=== PATIENT | male | born 1965 | race Caucasian/White ===

== ENCOUNTER 2020-06-04 14:06 | Inpatient (IN) | payer MEDICARE, MEDICAID, SELFPAY ==
--- NOTE | 2020-06-04 | ECG_ITS ---
Test Reason : R/O QTC PROLONG Blood Pressure : / mmHG Vent. Rate : 094 BPM Atrial Rate : 094 BPM P-R Int : 144 ms QRS Dur : 090 ms QT Int : 360 ms P-R-T Axes : 037 059 054 degrees QTc Int : 450 ms Normal sinus rhythm Normal ECG No previous ECGs available Referred By: Debbie Villalpando Electronically Signed By:ASHLEY WALLACE MD
[2020-06-04 16:26] LABS: Lithium 0.53 mmol/L (0.60-1.20)
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
[2020-06-04] MEDS: LORazepam 1 MG TABLET PO (17:45)
[2020-06-04 21:16] VITALS: BP 146/86; PULSE 100; TEMP 37.2; O2SAT 98
[2020-06-04] MEDS: QUEtiapine Fumarate 100 MG TABLET PO (21:18)
[2020-06-04] MEDS: Lithium Carbonate 300 MG CAPSULE PO (21:18)
[2020-06-05] MEDS: hydrOXYzine HCL 25 MG TABLET PO (00:36)
[2020-06-05] MEDS: OLANZapine 5 MG TABLET PO ×3 (00:36→15:06)
[2020-06-05] MEDS: LORazepam 1 MG TABLET PO ×3 (00:36→15:06)
--- NOTE | 2020-06-05 05:15 | PC.NURSE ---
0030: PT CAME RUNNING OUT OF HIS ROOM, CONFUSED, ACCUSING FEMALE SITTER OF SPEAKING INAPPROPRIATELY TO HIM, CARRYING A PIECE OF PAPER YELLING THAT HE WROTE WHAT SHE SAID. THE PIECE OF PAPER ONLY HAD HIS LAST NAME WRITTEN TWICE. PT THEN DEMANDED TO BE ALLOWED TO LEAVE UNIT OR HE WOULD BURN THE PLACE DOWN . SECURITY CALLED TO ASSIST WITH REDIRECTING PT. PT ACCEPTED PRN MEDICATION AT 0035 WITH GOOD EFFECT. PT IN BED BY 0050 AND APPEARS TO HAVE SLEPT.
[2020-06-05 06:00] VITALS: BP 132/83; PULSE 98; RESP 16; TEMP 36.4; O2SAT 97
[2020-06-05 07:56] LABS: MANUAL DIFF FLAG NO
[2020-06-05 08:02] LABS: Basophils Absolute Auto 0.1 X10*3/uL (0.0-0.2); Basophils Percent Auto 1.2 % (0-2); Eosinophils Absolute Auto 0.3 X10*3/uL (0.0-0.4); Eosinophils Percent Auto 3.5 % (0-4); Hematocrit 48.1 % (42-52); Hemoglobin 15.9 g/dl (14.0-18.0); Imm Gran Abs Auto 0.01 X10*3/uL (0.00-0.03); Imm Gran Pct Auto 0.1 % (0.0-0.4); Lymphocytes Absolute Auto 2.1 X10*3/uL (1.2-4.9); Lymphocytes Percent Auto 28.9 % (20-40); Mean Corpuscular HGB Conc 33.1 g/dl (31.0-36.0); Mean Corpuscular Hemoglobin 30.3 pg (27.0-33.0); Mean Corpuscular Volume 91.8 fL (80-98); Mean Platelet Volume 10.6 fL (9.4-12.4); Monocytes Absolute Auto 0.6 X10*3/uL (0.1-1.2); Monocytes Percent Auto 8.4 % (2-11); Neutrophils Absolute Auto 4.2 X10*3/uL (2.0-8.3); Neutrophils Percent Auto 57.9 % (45-73); Platelet Count 230 X10*3/uL (160-400); Red Blood Count 5.24 X10*6/uL (4.60-5.80); Red Cell Distribution Width 12.8 % (11.0-16.0); White Blood Count 7.2 X10*3/uL (4.8-10.8)
[2020-06-05 08:25] LABS: Alanine Aminotransferase 25 U/L (0-40); Albumin Level 4.3 g/dL (3.5-5.0); Alkaline Phosphatase 34 U/L (39-117); Anion Gap 12 (12-20); Aspartate Amino Transferase 24 U/L (5-37); Bilirubin Total 1.2 mg/dL (0.0-1.0); Blood Urea Nitrogen 12 mg/dL (9-16); Calcium 9.1 mg/dL (8.4-10.2); Carbon Dioxide 28 mmol/L (22-29); Chloride 106 mmol/L (96-108); Cholesterol 130 mg/dL; Estimated Glomerular Filt Rate > 60; Glucose Fasting 157 mg/dL (60-99); HDL Cholesterol 45 mg/dL; LDL Cholesterol Calculated 67 mg/dl; Potassium 3.8 mmol/L (3.3-5.1); Sodium 142 mmol/L (135-145); Triglycerides 90 mg/dL
[2020-06-05] MEDS: Lithium Carbonate 300 MG CAPSULE PO ×2 (08:33→20:50)
[2020-06-05 08:48] LABS: Free T4 (Free Thyroxine) 1.29 ng/dL (0.71-1.85); Thyroid Stimulating Hormone 3.25 uIU/mL (0.32-4.0)
[2020-06-05 09:22] LABS: Estimated Average Glucose 111 mg/dL; Hemoglobin A1c % 5.5 %
[2020-06-05 10:17] LABS: Folate 4.4 ng/mL (> or = 4.0); Vitamin B12 181 pg/mL (200-900)
[2020-06-05 10:44] VITALS: BMI 24.0
--- NOTE | 2020-06-05 11:11 | P.HPHOSP_ITS ---
History of Present Illness Date of Service: 06/05/20 Chief Complaint: medical exam for acute psychosis 55M admitted to inpatient psychiatry for acute psychosis. patient is poor historian due to acute psychosis, he denies any chest pain, sob. denies any medical history. Review of Systems Review of Systems: Constitutional: Denies fever, denies Chills Eyes: denies blurry vision ENT: denies sore throat CVS: denies chest pain Respiratory: Denies dyspnea GI: no abdominal pain : denies dysuria MSK: denies neck pain Skin: denies rash Neuro: denies specific motor weakness Psych: denies suicidal ideation Endocrine: denies heat/cold intoleratnce Hematologic: denies easy bleeding Allergy: denies hives [facility] Medical History Bipolar 1 disorder Pertinent family history: not pertintnet Family history: reviewed and not pertinent Social History Household Members: Significant Other Household Members Other:: 2 Housing: House Do you presently have visiting nurse or other home services: No Smoking Status: Former smoker Years Smoked: 9 Smoked in Last 30 Days: No Patient Interested in Nicotine Replacement: No Patient Given Instructions on How to Stop Smoking: No Second Hand Smoke Exposure: No Use of substances other than those prescribed or required for medical reasons: No Currently Displaying Signs/Symptoms of Drug Intoxication Withdrawal: No Any prior treatment program specific to substance use: No Have you been hit, kicked, punched, or otherwise hurt by someone within the past year? If so, by whom?: No Do you feel safe in your current relationship?: Yes Is there a partner from a previous relationship who is making you feel unsafe now?: Yes ( We both have ex's .) Are you made to feel afraid or neglected: No Spiritual Healthcare Practices: Christian Jehovah'S Witness Healthcare Practices: [facility] Cultural Healthcare Practices: No Advance Directives: No Advance Directives Information Provided: No Advance Directives on File: No Do you have thoughts of harming others: None Do you have a plan to hurt others: No Plan Recently lost weight without trying: No Meds Allergies Allergy/AdvReac Type Severity Reaction Status Date / Time Penicillins Allergy Unknown Unknown Verified 06/04/20 14:31 trazodone Allergy Unknown Unknown Verified 06/04/20 14:30 Active Medications: Current Medications Generic Name Dose Route Start Last Admin Trade Name Freq PRN Reason Stop Dose Admin Acetaminophen 650 mg 06/04/20 14:40 Acetaminophen 325 Mg Tablet PO Q6H PRN Headache/Pain Mild Scale (1-3) Al Hydroxide/Mg Hydroxide 30 ml 06/04/20 14:40 Magnesium Hydrox/Alum Hydrox 30 Ml Oral.Susp PO Q6H PRN Heartburn/Nausea Hydroxyzine HCl 25 mg 06/04/20 14:40 06/05/20 00:36 Hydroxyzine Hcl 25 Mg Tablet PO 25 mg BEDTIME PRN Administration Anxiety [place] Carbonate 300 mg 06/04/20 21:00 06/05/20 08:33 [place] Carbonate 300 Mg Capsule PO 300 mg BID JUAN DANIEL Administration Lorazepam 1 mg 06/04/20 15:29 06/05/20 08:33 Lorazepam 1 Mg Tablet PO 1 mg Q4H PRN Administration anxiety,agitation,leona Magnesium Hydroxide 30 ml 06/04/20 14:40 Milk Of Magnesia 30 Ml Oral.Susp PO DAILY PRN Constipation Olanzapine 5 mg 06/04/20 15:29 06/05/20 08:33 Olanzapine 5 Mg Tablet PO 5 mg Q4H PRN Administration agitation,leona,psychosis Quetiapine Fumarate 100 mg 06/04/20 21:00 06/04/20 21:18 Quetiapine Fumarate 100 Mg Tablet PO 100 mg BEDTIME JUAN DANIEL Administration Home Medications Medication Instructions Recorded Confirmed Last Taken Type lithium carbonate 300 mg PO BID 06/04/20 06/04/20 Unknown History quetiapine 100 mg PO DAILY 06/04/20 06/04/20 Unknown History Physical Exam Vital Signs and Narrative: Vital Signs: Last Vital Signs Temp 97.6 F 06/05/20 06:00 Pulse 98 06/05/20 06:00 Resp 16 06/05/20 06:00 BP 132/83 06/05/20 06:00 Pulse Ox 97 06/05/20 06:00 Body Mass Index 24.0 General: no acute distress HEENT: atraumatic Neck: normal to visual inspection CVS: S1, S2, RRR Resp: CTA bilateral Chest: non tender GI: soft, non tender, non distended : no CVA tenderness Skin: no rashes Extremities: no edema Neuro: grossly intact Psych: psychotic Results Labs CBC and Chem 7: 0318/21 07:46 06/05/20 07:46 Labs: Laboratory Results - last 24 hr 06/04/20 06/05/20 06/05/20 15:49 07:46 07:46 MCV 91.8 MCH 30.3 MCHC 33.1 RDW 12.8 Plt Count 230 MPV 10.6 Immature Gran % (Auto) 0.1 Neut % (Auto) 57.9 Lymph % (Auto) 28.9 [place] % (Auto) 8.4 Eos % (Auto) 3.5 Baso % (Auto) 1.2 Lymph # (Auto) 2.1 [place] # (Auto) 0.6 Eos # (Auto) 0.3 Baso # (Auto) 0.1 Abs Immat Gran (auto) 0.01 Absolute Neuts (auto) 4.2 Absolute Nucleated RBC 0.000 Nucleated RBC % (auto) 0.0 Anion Gap 12 Estim Creat Clear Calc TNP Estimated GFR > 60 Fasting Glucose 157 H Estimat Average Glucose Hemoglobin A1c % Calcium 9.1 Total Bilirubin 1.2 H AST 24 ALT 25 Alkaline Phosphatase 34 L Total Protein 7.0 Albumin 4.3 Triglycerides 90 Cholesterol 130 LDL Cholesterol, Calc 67 HDL Cholesterol 45 Vitamin B12 Folate TSH 3.25 Free T4 1.29 [place] 0.53 L 06/05/20 06/05/20 07:46 07:46 MCV MCH MCHC RDW Plt Count MPV Immature Gran % (Auto) Neut % (Auto) Lymph % (Auto) [place] % (Auto) Eos % (Auto) Baso % (Auto) Lymph # (Auto) [place] # (Auto) Eos # (Auto) Baso # (Auto) Abs Immat Gran (auto) Absolute Neuts (auto) Absolute Nucleated RBC Nucleated RBC % (auto) Anion Gap Estim Creat Clear Calc Estimated GFR Fasting Glucose Estimat Average Glucose 111 Hemoglobin A1c % 5.5 Calcium Total Bilirubin AST ALT Alkaline Phosphatase Total Protein Albumin Triglycerides Cholesterol LDL Cholesterol, Calc HDL Cholesterol Vitamin B12 181 L Folate 4.4 TSH Free T4 [place] Assessment and Plan (1) Bipolar 1 disorder: Status: Acute 55M presented with acute psychosis acute psychosis managemnet per psychiatry does not appear to have any active on chronic medical issues.
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
[2020-06-05 18:00] VITALS: BP 149/99; PULSE 119; TEMP 36.6
[2020-06-05 18:39] VITALS: BP 131/90; PULSE 105
[2020-06-05 19:33] LABS: Amphetamine Screen Urine Not Detected (Not Detect); Barbiturates, Urine Not Detected (Not Detect); Benzodiazepines Screen Urine POSITIVE (Not Detect); Cannabinoid Screen Urine POSITIVE (Not Detect); Cocaine Screen Urine Not Detected (Not Detect); Opiate Screen Urine Not Detected (Not Detect); Phencyclidine Screen Urine Not Detected (Not Detect)
[2020-06-05] MEDS: Divalproex Sodium 250 MG TABLET.DR PO (20:50)
[2020-06-06] MEDS: LORazepam 1 MG TABLET PO ×3 (03:27→14:29)
[2020-06-06] MEDS: hydrOXYzine HCL 25 MG TABLET PO (03:27)
[2020-06-06] MEDS: OLANZapine 5 MG TABLET PO ×3 (03:27→14:29)
[2020-06-06] MEDS: Divalproex Sodium 250 MG TABLET.DR PO (08:42)
[2020-06-06] MEDS: Lithium Carbonate 300 MG CAPSULE PO ×2 (08:42→22:33)
[2020-06-06 11:09] VITALS: BP 129/86; PULSE 111; RESP 16; TEMP 36.8; O2SAT 97
--- NOTE | 2020-06-06 12:04 | P.CNNE_ITS ---
History of Present Illness Data of Consult Service Date: 06/06/20 Primary Care Provider: None Physician 55 years old man who was on psychiatric floor with underlying diagnosis of bipolar disorder and worsening of this condition. He provided history that he had a seizure before he was [id number], which was told to him by his parents. He denied having any further seizures afterwards. According to him he was [facility] and moved to this area and 70s. He had not passed out and denied any distinct seizure-like symptoms in recent years. He denied any family history of seizures. Review of Systems Review of Systems: No recent seizure-like symptoms PMFSH Past Medical History Medical History (Updated 06/06/20 @ 12:06 by Jam Juan MD) Bipolar 1 disorder CVA (cerebral vascular accident) Seizure Family History Family history: reviewed and not pertinent Social History Social History Household Members: Significant Other Household Members Other:: 2 Housing: House Do you presently have visiting nurse or other home services: No Smoking Status: Former smoker Years Smoked: 9 Smoked in Last 30 Days: No Patient Interested in Nicotine Replacement: No Patient Given Instructions on How to Stop Smoking: No Second Hand Smoke Exposure: No Use of substances other than those prescribed or required for medical reasons: No Currently Displaying Signs/Symptoms of Drug Intoxication Withdrawal: No Any prior treatment program specific to substance use: No Have you been hit, kicked, punched, or otherwise hurt by someone within the past year? If so, by whom?: No Do you feel safe in your current relationship?: Yes Is there a partner from a previous relationship who is making you feel unsafe now?: Yes ( We both have ex's .) Are you made to feel afraid or neglected: No Spiritual Healthcare Practices: Sikhism Latter Day Healthcare Practices: [facility] Cultural Healthcare Practices: No Advance Directives: No Advance Directives Information Provided: No Advance Directives on File: No Do you have thoughts of harming others: None Do you have a plan to hurt others: No Plan Recently lost weight without trying: No service: No Sexual orientation: Straight/Heterosexual Meds Allergies Allergy/AdvReac Type Severity Reaction Status Date / Time Penicillins Allergy Unknown Unknown Verified 06/04/20 14:31 trazodone Allergy Unknown Unknown Verified 06/04/20 14:30 Active Medications: Current Medications Generic Name Dose Route Start Last Admin Trade Name Freq PRN Reason Stop Dose Admin Acetaminophen 650 mg 06/04/20 14:40 Acetaminophen 325 Mg Tablet PO Q6H PRN Headache/Pain Mild Scale (1-3) Al Hydroxide/Mg Hydroxide 30 ml 06/04/20 14:40 Magnesium Hydrox/Alum Hydrox 30 Ml Oral.Susp PO Q6H PRN Heartburn/Nausea Divalproex Sodium 250 mg 06/05/20 21:00 06/06/20 08:42 Divalproex Sodium 250 Mg Tablet.Dr PO 250 mg BID JUAN DANIEL Administration Hydroxyzine HCl 25 mg 06/04/20 14:40 06/06/20 03:27 Hydroxyzine Hcl 25 Mg Tablet PO 25 mg BEDTIME PRN Administration Anxiety [place] Carbonate 300 mg 06/04/20 21:00 06/06/20 08:42 [place] Carbonate 300 Mg Capsule PO 300 mg BID JUAN DANIEL Administration Lorazepam 1 mg 06/04/20 15:29 06/06/20 08:43 Lorazepam 1 Mg Tablet PO 1 mg Q4H PRN Administration anxiety,agitation,leona Magnesium Hydroxide 30 ml 06/04/20 14:40 Milk Of Magnesia 30 Ml Oral.Susp PO DAILY PRN Constipation Multivitamins 1 tab 06/05/20 17:45 06/06/20 08:42 B-Complex With Vitamin C Tablet PO 1 tab DAILY JUAN DANIEL Administration Olanzapine 5 mg 06/04/20 15:29 06/06/20 08:43 Olanzapine 5 Mg Tablet PO 5 mg Q4H PRN Administration agitation,leona,psychosis Home Medications Medication Instructions Recorded Confirmed Last Taken Type lithium carbonate 300 mg PO BID 06/04/20 06/04/20 Unknown History quetiapine 100 mg PO DAILY 06/04/20 06/04/20 Unknown History Physical Exam Vital Signs: Vital Signs: Last Vital Signs Temp 98.2 F 06/06/20 11:09 Pulse 111 H 06/06/20 11:09 Resp 16 06/06/20 11:09 BP 129/86 06/06/20 11:09 Pulse Ox 97 06/06/20 11:09 Body Mass Index 24.0 Alert and awake with normal spontaneity of speech fluency comprehension and wake affect. Pupils were equal and reactive to light and extraocular muscles were intact. Visual perez are full to confrontation. Face was symmetrical. There was no pronator drift. Deep tendon reflexes were trace to 1+ with flexor plantars. Balance gait and coordination were normal. Results Labs CBC & Chem 7: 06/05/20 07:46 06/05/20 07:46 Assessment and Plan (1) History of seizure: Status: Acute 55 years old man who provided his own history stating that he was born at [place] and had a seizure before he was [id number]. He said that he was told this by his family. He suffered from bipolar type of psychiatric disorder and moved to this area and 70s. He denied any particular seizure-like symptoms in recent years or since he was a child. At this time it seems unlikely that a seizure disorder or epilepsy was part of his illness but 1 could have an EEG as a screening test.
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
--- NOTE | 2020-06-06 15:42 | P.PNPSI_ITS ---
Subjective Subjective Date of Service: 06/06/20 Reason For Visit: Bipolar Subjective Notes: Conditional Voluntary Interim History: Pt reports improvement with thought organization, less racing. Reading when seen this morning. At times demonstrating synchronized mvts- zeyad chi, martial arts which he is highly trained in by history. Agrees to regime, rationale, neuro consult. Message received from Dr. Khan who reports pt was very stable on [place]/Seroquel for 1.5 years and decompensated quickly. He had no further recommendations for trials as pt is leaving that practice to transition to MA practice. Consultation with partner Ayanna who reports she sees improvement with some racing and tangential content. Pt has allowed her to inform his siblings and she wanted to inform us there is a family hx of DM and to check A1C which results were shared with her. Medication Compliance: Yes Side effects from medications: No Attending Groups: No Review of Systems Review of Systems Yes all other systems are reviewed and are negative Reports behavioral changes and Reports memory loss Psychiatric: Reports behavioral changes, Reports difficulty concentrating, Reports memory loss, Reports mood swings and Reports suicidal ideation (denies) Mental Status Exam Mental Status Exam Patient Appearance: Appropriate Patient Orientation: Person, Place, Time and Situation Level of Consciousness: Alert Patient Behavior: Appropriate, Talkative and Cooperative Mood Description: Calm Affect Description: Calm Patient Cognition Impaired: Yes Ability to Follow Directions: Good Speech Pattern: Spontaneous Speech Memory Description: Episodic Impaired Thought Process: Racing, Illogical and Distracted Thought Content: positive for Racing Judgement: Fair Diagnostics Vital Signs (24Hr): Vital Signs - 24 hr 06/05/20 18:00 06/05/20 18:39 06/06/20 11:09 Temperature 98 F 98.2 F Pulse Rate 119 H 105 H 111 H Respiratory Rate 16 Blood Pressure 149/99 H 131/90 H 129/86 Pulse Oximetry 97 Body Mass Index 24.0 Labs Results: 06/05/20 07:46 06/05/20 07:46 Labs: Laboratory Results - last 48 hr 06/04/20 06/05/20 06/05/20 15:49 07:46 07:46 WBC 7.2 RBC 5.24 Hgb 15.9 Hct 48.1 MCV 91.8 MCH 30.3 MCHC 33.1 RDW 12.8 Plt Count 230 MPV 10.6 Immature Gran % (Auto) 0.1 Neut % (Auto) 57.9 Lymph % (Auto) 28.9 [place] % (Auto) 8.4 Eos % (Auto) 3.5 Baso % (Auto) 1.2 Lymph # (Auto) 2.1 [place] # (Auto) 0.6 Eos # (Auto) 0.3 Baso # (Auto) 0.1 Abs Immat Gran (auto) 0.01 Absolute Neuts (auto) 4.2 Absolute Nucleated RBC 0.000 Nucleated RBC % (auto) 0.0 Sodium 142 Potassium 3.8 Chloride 106 Carbon Dioxide 28 Anion Gap 12 BUN 12 Creatinine 1.00 Estim Creat Clear Calc TNP Estimated GFR > 60 Fasting Glucose 157 H Estimat Average Glucose Hemoglobin A1c % Calcium 9.1 Total Bilirubin 1.2 H AST 24 ALT 25 Alkaline Phosphatase 34 L Total Protein 7.0 Albumin 4.3 Triglycerides 90 Cholesterol 130 LDL Cholesterol, Calc 67 HDL Cholesterol 45 Vitamin B12 25-OH Vitamin D Total Folate TSH 3.25 Free T4 1.29 Urine Opiates Screen Ur Barbiturates Screen Ur Phencyclidine Scrn Ur Amphetamines Screen U Benzodiazepines Scrn [place] 0.53 L Urine Cocaine Screen U Marijuana (THC) Screen 06/05/20 06/05/20 06/05/20 07:46 07:46 Unknown WBC RBC Hgb Hct MCV MCH MCHC RDW Plt Count MPV Immature Gran % (Auto) Neut % (Auto) Lymph % (Auto) [place] % (Auto) Eos % (Auto) Baso % (Auto) Lymph # (Auto) [place] # (Auto) Eos # (Auto) Baso # (Auto) Abs Immat Gran (auto) Absolute Neuts (auto) Absolute Nucleated RBC Nucleated RBC % (auto) Sodium Potassium Chloride Carbon Dioxide Anion Gap BUN Creatinine Estim Creat Clear Calc Estimated GFR Fasting Glucose Estimat Average Glucose 111 Hemoglobin A1c % 5.5 Calcium Total Bilirubin AST ALT Alkaline Phosphatase Total Protein Albumin Triglycerides Cholesterol LDL Cholesterol, Calc HDL Cholesterol Vitamin B12 181 L 25-OH Vitamin D Total Folate 4.4 TSH Free T4 Urine Opiates Screen Not Detected Ur Barbiturates Screen Not Detected Ur Phencyclidine Scrn Not Detected Ur Amphetamines Screen Not Detected U Benzodiazepines Scrn POSITIVE H [place] Urine Cocaine Screen Not Detected U Marijuana (THC) Screen POSITIVE H 06/06/20 10:04 WBC RBC Hgb Hct MCV MCH MCHC RDW Plt Count MPV Immature Gran % (Auto) Neut % (Auto) Lymph % (Auto) [place] % (Auto) Eos % (Auto) Baso % (Auto) Lymph # (Auto) [place] # (Auto) Eos # (Auto) Baso # (Auto) Abs Immat Gran (auto) Absolute Neuts (auto) Absolute Nucleated RBC Nucleated RBC % (auto) Sodium Potassium Chloride Carbon Dioxide Anion Gap BUN Creatinine Estim Creat Clear Calc Estimated GFR Fasting Glucose Estimat Average Glucose Hemoglobin A1c % Calcium Total Bilirubin AST ALT Alkaline Phosphatase Total Protein Albumin Triglycerides Cholesterol LDL Cholesterol, Calc HDL Cholesterol Vitamin B12 25-OH Vitamin D Total 43.0 Folate TSH Free T4 Urine Opiates Screen Ur Barbiturates Screen Ur Phencyclidine Scrn Ur Amphetamines Screen U Benzodiazepines Scrn [place] Urine Cocaine Screen U Marijuana (THC) Screen Medications Medications Current Medications Generic Name Dose Route Start Last Admin Trade Name Freq PRN Reason Stop Dose Admin Acetaminophen 650 mg 06/04/20 14:40 Acetaminophen 325 Mg Tablet PO Q6H PRN Headache/Pain Mild Scale (1-3) Al Hydroxide/Mg Hydroxide 30 ml 06/04/20 14:40 Magnesium Hydrox/Alum Hydrox 30 Ml Oral.Susp PO Q6H PRN Heartburn/Nausea Divalproex Sodium 250 mg 06/05/20 21:00 06/06/20 08:42 Divalproex Sodium 250 Mg Tablet.Dr PO 250 mg BID JUAN DANIEL Administration Hydroxyzine HCl 25 mg 06/04/20 14:40 06/06/20 03:27 Hydroxyzine Hcl 25 Mg Tablet PO 25 mg BEDTIME PRN Administration Anxiety [place] Carbonate 300 mg 06/04/20 21:00 06/06/20 08:42 [place] Carbonate 300 Mg Capsule PO 300 mg BID JUAN DANIEL Administration Lorazepam 1 mg 06/04/20 15:29 06/06/20 14:29 Lorazepam 1 Mg Tablet PO 1 mg Q4H PRN Administration anxiety,agitation,[place] Magnesium Hydroxide 30 ml 06/04/20 14:40 Milk Of Magnesia 30 Ml Oral.Susp PO DAILY PRN Constipation Multivitamins 1 tab 06/05/20 17:45 06/06/20 08:42 B-Complex With Vitamin C Tablet PO 1 tab DAILY JUAN DANIEL Administration Olanzapine 5 mg 06/04/20 15:29 06/06/20 14:29 Olanzapine 5 Mg Tablet PO 5 mg Q4H PRN Administration agitation,leona,psychosis Allergies Allergies Allergy/AdvReac Type Severity Reaction Status Date / Time Penicillins Allergy Unknown Unknown Verified 06/04/20 14:31 trazodone Allergy Unknown Unknown Verified 06/04/20 14:30 Assessment & Plan Assessment & Plan (1) Bipolar 1 disorder: Status: Acute Code(s): F31.9 - Bipolar disorder, unspecified Assessment and Plan: Increase Depakote to 250 mg a.m. 500 mg HS EEG per neuro consult recommendation Will discuss longer term atypical with pt/Ayanna- ?[facility] trial. Greater than 50% of the session was spent on counseling and/or coordination of care Reason for contiued inpatient stay Substantial Risk for: inability to function and rapid decompensation
[2020-06-06 19:50] VITALS: BP 172/90; PULSE 99; TEMP 36.6
[2020-06-06 22:30] VITALS: BP 168/82; PULSE 86
[2020-06-06] MEDS: Divalproex Sodium 500 MG TABLET.DR PO (22:33)
[2020-06-07 01:05] VITALS: BP 144/99; PULSE 110
[2020-06-07] MEDS: amLODIPine Besylate 5 MG TABLET PO ×2 (01:05→08:11)
[2020-06-07] MEDS: Cyanocobalamin (Vitamin B-12) 1,000 MCG TABLET 1000 MCG PO ×2 (01:05→08:11)
[2020-06-07] MEDS: LORazepam 1 MG TABLET PO ×3 (01:07→21:40)
[2020-06-07] MEDS: hydrOXYzine HCL 25 MG TABLET PO ×2 (01:07→21:36)
[2020-06-07 06:05] VITALS: BP 104/58; PULSE 85; RESP 18; TEMP 36.5; O2SAT 96
[2020-06-07 08:11] VITALS: BP 147/78; PULSE 123
[2020-06-07] MEDS: Divalproex Sodium 250 MG TABLET.DR PO (08:11)
[2020-06-07] MEDS: OLANZapine 5 MG TABLET PO ×2 (08:11→11:12)
[2020-06-07] MEDS: Lithium Carbonate 300 MG CAPSULE PO ×2 (08:11→21:36)
[2020-06-07 08:29] LABS: Lithium 0.49 mmol/L (0.60-1.20)
[2020-06-07 08:36] LABS: Anion Gap 12 (12-20); Blood Urea Nitrogen 13 mg/dL (9-16); Carbon Dioxide 26 mmol/L (22-29); Chloride 107 mmol/L (96-108); Creatinine Clr Calc Pharmacy 83.1; Estimated Glomerular Filt Rate > 60; Glucose Random 121 mg/dL (60-115); Potassium 4.1 mmol/L (3.3-5.1); Sodium 141 mmol/L (135-145)
[2020-06-07 08:58] VITALS: BP 124/69; BP 125/79; BP 126/77; PULSE 110; PULSE 117; PULSE 118
--- NOTE | 2020-06-07 10:11 | HO.PSYCHPN ---
Subjective Subjective Date of Service: 06/07/20 Reason For Visit: Bipolar Interim History: Pt presents slightly less disorganized. His attention appears slightly improved as well as his ability to retain recent information. Pt no longer looking at one to one person to fill the gaps as he could not tell what had happened the day before or even earlier today. Note that pt getting olanzapine around the clock, which current is only PRN but he needs it scheduled. Pt taking medications as prescribed. He reports sleeping better. His thought content continues to be positive for poverty of thought, details limited to yes and no but would more accurate talk about in simple ways about his day. He does report having some residual paranoia and not sure if he is safe here in the unit. MSE Appearance: casually groomed, disheveled, in NAD Behavior: calm, cooperative Psychomotor: no agitation or retardation noted Speech: clear, normal rate/rhythm/volume, spontaneous TP: some loose associations, but more coherent TC: some paranoia, Mood: okay Affect:perplexed/disorganized AH/VH:denies but appears to be responding Delusions:some paranoia Insight/judgment:impaired Memory/cog:alert, oriented to year, month not city, knows it's a psych hospital but continues to struggle with events that led to this admission. Review of Systems Review of Systems No recent seizure-like symptoms Yes all other systems are reviewed and are negative and Unobtainable due to mental status Reports behavioral changes, Reports confusion and Reports memory loss Psychiatric: Reports abnormal sleep pattern, Reports anxiety, Reports behavioral changes, Reports change in appetite, Reports confusion, Reports depression, Reports difficulty concentrating, Reports hopelessness, Reports memory loss, Reports mood swings, Reports hallucinations, Reports homicidal ideation (denies) and Reports suicidal ideation (denies) Diagnostics Vital Signs (24Hr): Vital Signs - 24 hr 06/06/20 11:09 06/06/20 19:50 06/06/20 22:30 Temperature 98.2 F 97.9 F Pulse Rate 111 H 99 86 Respiratory Rate 16 Blood Pressure 129/86 172/90 H 168/82 H Pulse Oximetry 97 06/07/20 01:05 06/07/20 06:05 06/07/20 08:11 Temperature 97.7 F Pulse Rate 110 H 85 123 H Respiratory Rate 18 Blood Pressure 144/99 H 104/58 L 147/78 H Pulse Oximetry 96 06/07/20 08:58 Temperature Pulse Rate 110 H Respiratory Rate Blood Pressure 125/79 Pulse Oximetry Body Mass Index 24.0 Labs Results: 06/05/20 07:46 06/07/20 07:52 Labs: Laboratory Results - last 48 hr 06/05/20 06/05/20 06/06/20 07:46 Unknown 10:04 Sodium Potassium Chloride Carbon Dioxide Anion Gap BUN Creatinine Estim Creat Clear Calc Estimated GFR Random Glucose Calcium Vitamin B12 181 L 25-OH Vitamin D Total 43.0 Folate 4.4 Urine Opiates Screen Not Detected Ur Barbiturates Screen Not Detected Ur Phencyclidine Scrn Not Detected Ur Amphetamines Screen Not Detected U Benzodiazepines Scrn POSITIVE H [place] Urine Cocaine Screen Not Detected U Marijuana (THC) Screen POSITIVE H 06/07/20 06/07/20 07:52 07:52 Sodium 141 Potassium 4.1 Chloride 107 Carbon Dioxide 26 Anion Gap 12 BUN 13 Creatinine 0.98 Estim Creat Clear Calc 83.1 Estimated GFR > 60 Random Glucose 121 H Calcium 9.0 Vitamin B12 25-OH Vitamin D Total Folate Urine Opiates Screen Ur Barbiturates Screen Ur Phencyclidine Scrn Ur Amphetamines Screen U Benzodiazepines Scrn [place] 0.49 L Urine Cocaine Screen U Marijuana (THC) Screen Medications Medications Current Medications Generic Name Dose Route Start Last Admin Trade Name Freq PRN Reason Stop Dose Admin Acetaminophen 650 mg 06/04/20 14:40 Acetaminophen 325 Mg Tablet PO Q6H PRN Headache/Pain Mild Scale (1-3) Al Hydroxide/Mg Hydroxide 30 ml 06/04/20 14:40 Magnesium Hydrox/Alum Hydrox 30 Ml Oral.Susp PO Q6H PRN Heartburn/Nausea Amlodipine Besylate 5 mg 06/06/20 23:30 06/07/20 08:11 Amlodipine Besylate 5 Mg Tablet PO 5 mg DAILY JUAN DANIEL Administration Protocol Cyanocobalamin 1,000 mcg 06/07/20 00:00 06/07/20 08:11 Cyanocobalamin (Vitamin B-12) 1,000 Mcg Tablet PO 1,000 mcg DAILY JUAN DANIEL Administration Divalproex Sodium 250 mg 06/07/20 09:00 06/07/20 08:11 Divalproex Sodium 250 Mg Tablet.Dr PO 250 mg DAILY JUAN DANIEL Administration Divalproex Sodium 500 mg 06/06/20 21:00 06/06/20 22:33 Divalproex Sodium 500 Mg Tablet.Dr PO 500 mg BEDTIME JUAN DANIEL Administration Hydroxyzine HCl 25 mg 06/04/20 14:40 06/07/20 01:07 Hydroxyzine Hcl 25 Mg Tablet PO 25 mg BEDTIME PRN Administration Anxiety [place] Carbonate 300 mg 06/04/20 21:00 06/07/20 08:11 [place] Carbonate 300 Mg Capsule PO 300 mg BID JUAN DANIEL Administration Lorazepam 1 mg 06/04/20 15:29 06/07/20 08:11 Lorazepam 1 Mg Tablet PO 1 mg Q4H PRN Administration anxiety,agitation,leona Magnesium Hydroxide 30 ml 06/04/20 14:40 Milk Of Magnesia 30 Ml Oral.Susp PO DAILY PRN Constipation Olanzapine 5 mg 06/04/20 15:29 06/07/20 08:11 Olanzapine 5 Mg Tablet PO 5 mg Q4H PRN Administration agitation,leona,psychosis Allergies Allergies Allergy/AdvReac Type Severity Reaction Status Date / Time Penicillins Allergy Unknown Unknown Verified 06/04/20 14:31 trazodone Allergy Unknown Unknown Verified 06/04/20 14:30 Assessment & Plan Assessment & Plan (1) Bipolar 1 disorder: Status: Acute Code(s): F31.9 - Bipolar disorder, unspecified Assessment and Plan: Continue Depakote to 250 mg a.m. 500 mg HS Continue lithium Schedule Olanzapine 5mg po daily and 10mg po qhs. Greater than 50% of the session was spent on counseling and/or coordination of care Reason for contiued inpatient stay Substantial Risk for: inability to function
[2020-06-07 18:00] VITALS: BP 146/89; PULSE 94; TEMP 37
[2020-06-07 21:36] VITALS: BP 154/96; PULSE 91; RESP 16; TEMP 36.9; O2SAT 98
[2020-06-07] MEDS: OLANZapine 10 MG TABLET PO (21:36)
[2020-06-07] MEDS: Divalproex Sodium 500 MG TABLET.DR PO (21:36)
[2020-06-08] MEDS: LORazepam 1 MG TABLET PO ×2 (02:14→22:00)
[2020-06-08] MEDS: OLANZapine 5 MG TABLET PO ×2 (02:14→09:00)
[2020-06-08 06:15] VITALS: BP 118/65; PULSE 108; RESP 16; TEMP 36.6; O2SAT 98
[2020-06-08 09:00] VITALS: BP 133/85; PULSE 121
[2020-06-08] MEDS: Lithium Carbonate 300 MG CAPSULE PO ×2 (09:00→22:00)
[2020-06-08] MEDS: Divalproex Sodium 250 MG TABLET.DR PO (09:00)
[2020-06-08] MEDS: amLODIPine Besylate 5 MG TABLET PO (09:00)
[2020-06-08] MEDS: Cyanocobalamin (Vitamin B-12) 1,000 MCG TABLET 1000 MCG PO (09:00)
--- NOTE | 2020-06-08 10:43 | HO.PSYCHPN ---
Subjective Subjective Date of Service: 06/08/20 Reason For Visit: Bipolar Interim History: Pt presents slightly less disorganized. His attention appears slightly improved as well as his ability to retain recent information. Pt no longer looking at one to one person to fill the gaps as he could not tell what had happened the day before or even earlier today. Note that pt getting olanzapine around the clock, which current is only PRN but he needs it scheduled. Pt taking medications as prescribed. He reports sleeping better. His thought content continues to be positive for poverty of thought, details limited to yes and no but would more accurate talk about in simple ways about his day. He does report having some residual paranoia and not sure if he is safe here in the unit. MSE Appearance: casually groomed, disheveled, in NAD Behavior: calm, cooperative Psychomotor: no agitation or retardation noted Speech: clear, normal rate/rhythm/volume, spontaneous TP: some loose associations, but more coherent TC: some paranoia, Mood: okay Affect:perplexed/disorganized AH/VH:denies but appears to be responding Delusions:some paranoia Insight/judgment:impaired Memory/cog:alert, oriented to year, month not city, knows it's a psych hospital but continues to struggle with events that led to this admission. Review of Systems Review of Systems No recent seizure-like symptoms Yes all other systems are reviewed and are negative and Unobtainable due to mental status Reports behavioral changes, Reports confusion and Reports memory loss Psychiatric: Reports abnormal sleep pattern, Reports anxiety, Reports behavioral changes, Reports change in appetite, Reports confusion, Reports depression, Reports difficulty concentrating, Reports hopelessness, Reports memory loss, Reports mood swings, Reports hallucinations, Reports homicidal ideation (denies) and Reports suicidal ideation (denies) Mental Status Exam Mental Status Exam Patient Appearance: Appropriate Patient Orientation: Person, Place, Time and Situation Level of Consciousness: Alert Patient Behavior: Appropriate, Talkative and Cooperative Mood Description: Calm Affect Description: Calm Patient Cognition Impaired: Yes Ability to Follow Directions: Good Speech Pattern: Spontaneous Speech Memory Description: Episodic Impaired Diagnostics Vital Signs (24Hr): Vital Signs - 24 hr 06/07/20 18:00 06/07/20 21:36 06/08/20 06:15 Temperature 98.6 F 98.4 F 97.8 F Pulse Rate 94 91 108 H Respiratory Rate 16 16 Blood Pressure 146/89 H 154/96 H 118/65 Pulse Oximetry 98 98 06/08/20 09:00 Temperature Pulse Rate 121 H Respiratory Rate Blood Pressure 133/85 Pulse Oximetry Body Mass Index 24.0 Labs Results: 06/05/20 07:46 06/07/20 07:52 Labs: Laboratory Results - last 48 hr 06/06/20 06/07/20 06/07/20 10:04 07:52 07:52 Sodium 141 Potassium 4.1 Chloride 107 Carbon Dioxide 26 Anion Gap 12 BUN 13 Creatinine 0.98 Estim Creat Clear Calc 83.1 Estimated GFR > 60 Random Glucose 121 H Calcium 9.0 25-OH Vitamin D Total 43.0 [place] 0.49 L Medications Medications Current Medications Generic Name Dose Route Start Last Admin Trade Name Freq PRN Reason Stop Dose Admin Acetaminophen 650 mg 06/04/20 14:40 Acetaminophen 325 Mg Tablet PO Q6H PRN Headache/Pain Mild Scale (1-3) Al Hydroxide/Mg Hydroxide 30 ml 06/04/20 14:40 Magnesium Hydrox/Alum Hydrox 30 Ml Oral.Susp PO Q6H PRN Heartburn/Nausea Amlodipine Besylate 5 mg 06/06/20 23:30 06/08/20 09:00 Amlodipine Besylate 5 Mg Tablet PO 5 mg DAILY JUAN DANIEL Administration Protocol Cyanocobalamin 1,000 mcg 06/07/20 00:00 06/08/20 09:00 Cyanocobalamin (Vitamin B-12) 1,000 Mcg Tablet PO 1,000 mcg DAILY JUAN DANIEL Administration Divalproex Sodium 250 mg 06/07/20 09:00 06/08/20 09:00 Divalproex Sodium 250 Mg Tablet. PO 250 mg DAILY JUAN DANIEL Administration Divalproex Sodium 500 mg 06/06/20 21:00 06/07/20 21:36 Divalproex Sodium 500 Mg Tablet. PO 500 mg BEDTIME JUAN DANIEL Administration Hydroxyzine HCl 25 mg 06/04/20 14:40 06/07/20 21:36 Hydroxyzine Hcl 25 Mg Tablet PO 25 mg BEDTIME PRN Administration Anxiety [place] Carbonate 300 mg 06/04/20 21:00 06/08/20 09:00 [place] Carbonate 300 Mg Capsule PO 300 mg BID JUAN DANIEL Administration Lorazepam 1 mg 06/04/20 15:29 06/08/20 02:14 Lorazepam 1 Mg Tablet PO 1 mg Q4H PRN Administration anxiety,agitation,leona Magnesium Hydroxide 30 ml 06/04/20 14:40 Milk Of Magnesia 30 Ml Oral.Susp PO DAILY PRN Constipation Olanzapine 5 mg 06/04/20 15:29 06/08/20 02:14 Olanzapine 5 Mg Tablet PO 5 mg Q4H PRN Administration agitation,leona,psychosis Olanzapine 5 mg 06/07/20 10:30 06/08/20 09:00 Olanzapine 5 Mg Tablet PO 5 mg DAILY JUAN DANIEL Administration Olanzapine 10 mg 06/07/20 21:00 06/07/20 21:36 Olanzapine 10 Mg Tablet PO 10 mg BEDTIME JUAN DANIEL Administration Allergies Allergies Allergy/AdvReac Type Severity Reaction Status Date / Time Penicillins Allergy Unknown Unknown Verified 06/04/20 14:31 trazodone Allergy Unknown Unknown Verified 06/04/20 14:30 Assessment & Plan Assessment & Plan (1) Bipolar 1 disorder: Status: Acute Code(s): F31.9 - Bipolar disorder, unspecified Assessment and Plan: Continue Depakote to 250 mg a.m. 500 mg HS Continue lithium Schedule Olanzapine 5mg po daily and 10mg po qhs. Greater than 50% of the session was spent on counseling and/or coordination of care Reason for contiued inpatient stay Substantial Risk for: inability to function
[2020-06-08 18:00] VITALS: BP 137/82; PULSE 109; TEMP 36.8
[2020-06-08] MEDS: OLANZapine 10 MG TABLET PO (22:00)
[2020-06-08] MEDS: hydrOXYzine HCL 25 MG TABLET PO (22:00)
[2020-06-08] MEDS: Divalproex Sodium 500 MG TABLET.DR PO (22:00)
[2020-06-09] MEDS: OLANZapine 5 MG TABLET PO ×2 (03:44→08:17)
[2020-06-09] MEDS: LORazepam 1 MG TABLET PO ×2 (03:44→21:56)
[2020-06-09 06:00] VITALS: BP 123/66; PULSE 60; RESP 16; TEMP 37; O2SAT 98
[2020-06-09 08:17] VITALS: BP 114/67; PULSE 87
[2020-06-09] MEDS: amLODIPine Besylate 5 MG TABLET PO (08:17)
[2020-06-09] MEDS: Lithium Carbonate 300 MG CAPSULE PO ×2 (08:17→21:56)
[2020-06-09] MEDS: Cyanocobalamin (Vitamin B-12) 1,000 MCG TABLET 1000 MCG PO (08:17)
[2020-06-09] MEDS: Divalproex Sodium 250 MG TABLET.DR PO (08:17)
--- NOTE | 2020-06-09 09:00 | EEG_ITS ---
This is a 16-channel EEG with an EKG lead. The patient is reported awake and drowsy during the tracing. Background EEG rhythm is 8 to 10 hertz, 5 to 30 microvolt posteriorly, lower amplitude fast anteriorly. Photic stimulation does not produce any significant abnormality. Hyperventilation is not performed. IMPRESSION: Unremarkable EEG. MD ROXANNE [place]/BUBBA / [id number]
[2020-06-09 10:16] LABS: Valproate 77.7 mcg/mL (50.0-100.0)
--- NOTE | 2020-06-09 17:32 | HO.PSYCHPN ---
Subjective Subjective Date of Service: 06/09/20 Reason For Visit: Bipolar Subjective Notes: Conditional Voluntary Interim History: Pt reporting improvement. Partner reports significant improvement, almost back to baseline. Over the weekend Olanzapine needed to be scheduled. By history pt has had significant weight gain. Team reports continued episodes of disorganization, confusion, possibly some sx of possible dementia. Await EEG results. Medication Compliance: Yes Side effects from medications: No Attending Groups: No Review of Systems Review of Systems Yes all other systems are reviewed and are negative (denies) Reports behavioral changes, Reports confusion and Reports memory loss Psychiatric: Reports behavioral changes, Reports confusion and Reports memory loss Mental Status Exam Mental Status Exam Patient Appearance: Appropriate Patient Orientation: Person, Place, Time and Situation Level of Consciousness: Alert (reading a book) Patient Behavior: Appropriate, Talkative, Posturing, Cooperative, Distractible, Confused and Impulsive Mood Description: Calm Affect Description: Calm Patient Cognition Impaired: Yes Speech Pattern: Spontaneous Speech Memory Description: Remote Impaired and Episodic Impaired Hallucinations: None Delusions: Not Present Thought Process: Distracted Judgement: Fair Diagnostics Vital Signs (24Hr): Vital Signs - 24 hr 06/08/20 18:00 06/09/20 06:00 06/09/20 08:17 Temperature 98.3 F 98.6 F Pulse Rate 109 H 60 87 Respiratory Rate 16 Blood Pressure 137/82 123/66 114/67 Pulse Oximetry 98 Body Mass Index 24.0 Labs Results: 06/05/20 07:46 06/07/20 07:52 Labs: Laboratory Results - last 48 hr 06/09/20 09:05 Valproic Acid 77.7 Medications Medications Current Medications Generic Name Dose Route Start Last Admin Trade Name [place] PRN Reason Stop Dose Admin Acetaminophen 650 mg 06/04/20 14:40 Acetaminophen 325 Mg Tablet PO Q6H PRN Headache/Pain Mild Scale (1-3) Al Hydroxide/Mg Hydroxide 30 ml 06/04/20 14:40 Magnesium Hydrox/Alum Hydrox 30 Ml Oral.Susp PO Q6H PRN Heartburn/Nausea Amlodipine Besylate 5 mg 06/06/20 23:30 06/09/20 08:17 Amlodipine Besylate 5 Mg Tablet PO 5 mg DAILY JUAN DANIEL Administration Protocol Cyanocobalamin 1,000 mcg 06/07/20 00:00 06/09/20 08:17 Cyanocobalamin (Vitamin B-12) 1,000 Mcg Tablet PO 1,000 mcg DAILY JUAN DANIEL Administration Divalproex Sodium 250 mg 06/07/20 09:00 06/09/20 08:17 Divalproex Sodium 250 Mg Tablet. PO 250 mg DAILY JUAN DANIEL Administration Divalproex Sodium 500 mg 06/06/20 21:00 06/08/20 22:00 Divalproex Sodium 500 Mg Tablet. PO 500 mg BEDTIME JUAN DANIEL Administration Hydroxyzine HCl 25 mg 06/04/20 14:40 06/08/20 22:00 Hydroxyzine Hcl 25 Mg Tablet PO 25 mg BEDTIME PRN Administration Anxiety [place] Carbonate 300 mg 06/04/20 21:00 06/09/20 08:17 [place] Carbonate 300 Mg Capsule PO 300 mg BID JUAN DANIEL Administration Lorazepam 1 mg 06/04/20 15:29 06/09/20 03:44 Lorazepam 1 Mg Tablet PO 1 mg Q4H PRN Administration anxiety,agitation,leona Magnesium Hydroxide 30 ml 06/04/20 14:40 Milk Of Magnesia 30 Ml Oral.Susp PO DAILY PRN Constipation Olanzapine 5 mg 06/04/20 15:29 06/09/20 03:44 Olanzapine 5 Mg Tablet PO 5 mg Q4H PRN Administration agitation,leona,psychosis Olanzapine 5 mg 06/07/20 10:30 06/09/20 08:17 Olanzapine 5 Mg Tablet PO 5 mg DAILY JUAN DANIEL Administration Olanzapine 10 mg 06/07/20 21:00 06/08/20 22:00 Olanzapine 10 Mg Tablet PO 10 mg BEDTIME JUAN DANIEL Administration Allergies Allergies Allergy/AdvReac Type Severity Reaction Status Date / Time Penicillins Allergy Unknown Unknown Verified 06/04/20 14:31 trazodone Allergy Unknown Unknown Verified 06/04/20 14:30 Assessment & Plan Assessment & Plan (1) Bipolar 1 disorder: Status: Acute Code(s): F31.9 - Bipolar disorder, unspecified Assessment and Plan: Continue current regime Await EEG results. Greater than 50% of the session was spent on counseling and/or coordination of care Reason for contiued inpatient stay Substantial Risk for: inability to function and rapid decompensation
[2020-06-09 18:00] VITALS: BP 170/86; PULSE 108; TEMP 35.8
[2020-06-09] MEDS: OLANZapine 10 MG TABLET PO (21:56)
[2020-06-09] MEDS: hydrOXYzine HCL 25 MG TABLET PO (21:56)
[2020-06-09] MEDS: Divalproex Sodium 500 MG TABLET.DR PO (21:57)
[2020-06-10 06:10] VITALS: BP 101/59; PULSE 81; RESP 16; TEMP 36.6; O2SAT 97
[2020-06-10 08:20] VITALS: BP 138/72; PULSE 80
[2020-06-10] MEDS: amLODIPine Besylate 5 MG TABLET PO (08:20)
[2020-06-10] MEDS: Divalproex Sodium 250 MG TABLET.DR PO (08:21)
[2020-06-10] MEDS: Cyanocobalamin (Vitamin B-12) 1,000 MCG TABLET 1000 MCG PO (08:21)
[2020-06-10] MEDS: OLANZapine 5 MG TABLET PO (08:21)
[2020-06-10] MEDS: Lithium Carbonate 300 MG CAPSULE PO ×2 (08:22→21:46)
--- NOTE | 2020-06-10 15:59 | P.PNPSI_ITS ---
Subjective Subjective Date of Service: 06/10/20 Reason For Visit: Bipolar Subjective Notes: Conditional Voluntary Interim History: Changed from [place] to 5 minute checks. Pt reports feeling improved. Met with pt and to discuss trials of antipsychotics without signi ficant weight gain potential. Has trialed Geodon and Risperdal without success. Discussion of Vraylar trial which pt agrees to. 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 Both ask if PHP will be an option for pt upon discharge. Medication Compliance: Yes Side effects from medications: No Attending Groups: Intermittent Review of Systems Review of Systems Yes all other systems are reviewed and are negative (denies) Reports behavioral changes Psychiatric: Reports behavioral changes, Reports mood swings and Reports suicidal ideation (denies SI plan, intent) Mental Status Exam Mental Status Exam Patient Appearance: Appropriate Patient Orientation: Person, Place, Time and Situation Level of Consciousness: Alert Patient Behavior: Appropriate Mood Description: Calm Affect Description: Calm Patient Cognition Impaired: No Ability to Follow Directions: Good Speech Pattern: Spontaneous Speech Memory Description: Intact Hallucinations: None Delusions: Not Present Thought Process: Intact Thought Content: positive for Intact Judgement: Fair Diagnostics Vital Signs (24Hr): Vital Signs - 24 hr 06/09/20 18:00 06/10/20 06:10 06/10/20 08:20 Temperature 96.5 F L 98 F Pulse Rate 108 H 81 80 Respiratory Rate 16 Blood Pressure 170/86 H 101/59 L 138/72 Pulse Oximetry 97 Body Mass Index 24.0 Labs Results: 06/05/20 07:46 06/07/20 07:52 Labs: Laboratory Results - last 48 hr 06/09/20 09:05 Valproic Acid 77.7 Medications Medications Current Medications Generic Name Dose Route Start Last Admin Trade Name Freq PRN Reason Stop Dose Admin Acetaminophen 650 mg 06/04/20 14:40 Acetaminophen 325 Mg Tablet PO Q6H PRN Headache/Pain Mild Scale (1-3) Al Hydroxide/Mg Hydroxide 30 ml 06/04/20 14:40 Magnesium Hydrox/Alum Hydrox 30 Ml Oral.Susp PO Q6H PRN Heartburn/Nausea Amlodipine Besylate 5 mg 06/06/20 23:30 06/10/20 08:20 Amlodipine Besylate 5 Mg Tablet PO 5 mg DAILY JUAN DANIEL Administration Protocol Cyanocobalamin 1,000 mcg 06/07/20 00:00 06/10/20 08:21 Cyanocobalamin (Vitamin B-12) 1,000 Mcg Tablet PO 1,000 mcg DAILY JUAN DANIEL Administration Divalproex Sodium 250 mg 06/07/20 09:00 06/10/20 08:21 Divalproex Sodium 250 Mg Tablet. PO 250 mg DAILY JUAN DANIEL Administration Divalproex Sodium 500 mg 06/06/20 21:00 06/09/20 21:57 Divalproex Sodium 500 Mg Tablet. PO 500 mg BEDTIME JUAN DANIEL Administration Hydroxyzine HCl 25 mg 06/04/20 14:40 06/09/20 21:56 Hydroxyzine Hcl 25 Mg Tablet PO 25 mg BEDTIME PRN Administration Anxiety [place] Carbonate 300 mg 06/04/20 21:00 06/10/20 08:22 [place] Carbonate 300 Mg Capsule PO 300 mg BID JUAN DANIEL Administration Lorazepam 1 mg 06/04/20 15:29 06/09/20 21:56 Lorazepam 1 Mg Tablet PO 1 mg Q4H PRN Administration anxiety,agitation,leona Magnesium Hydroxide 30 ml 06/04/20 14:40 Milk Of Magnesia 30 Ml Oral.Susp PO DAILY PRN Constipation Olanzapine 5 mg 06/04/20 15:29 06/09/20 03:44 Olanzapine 5 Mg Tablet PO 5 mg Q4H PRN Administration agitation,leona,psychosis Olanzapine 5 mg 06/07/20 10:30 06/10/20 08:21 Olanzapine 5 Mg Tablet PO 5 mg DAILY JUAN DANIEL Administration Olanzapine 10 mg 06/07/20 21:00 06/09/20 21:56 Olanzapine 10 Mg Tablet PO 10 mg BEDTIME JUAN DANIEL Administration Allergies Allergies Allergy/AdvReac Type Severity Reaction Status Date / Time Penicillins Allergy Unknown Unknown Verified 06/04/20 14:31 trazodone Allergy Unknown Unknown Verified 06/04/20 14:30 Assessment & Plan Assessment & Plan (1) Bipolar 1 disorder: Status: Acute Code(s): F31.9 - Bipolar disorder, unspecified Assessment and Plan: -Vraylar 1.5 mg a.m. Greater than 50% of the session was spent on counseling and/or coordination of care Reason for contiued inpatient stay Substantial Risk for: inability to function and rapid decompensation
[2020-06-10 19:07] VITALS: BP 147/92; PULSE 99; RESP 20; TEMP 36.5
[2020-06-10] MEDS: OLANZapine 10 MG TABLET PO (21:46)
[2020-06-10] MEDS: Divalproex Sodium 500 MG TABLET.DR PO (21:47)
[2020-06-11] MEDS: OLANZapine 5 MG TABLET PO ×2 (05:18→08:18)
[2020-06-11 06:00] VITALS: BP 145/92; PULSE 71; TEMP 36.5
[2020-06-11 08:18] VITALS: BP 137/79; PULSE 100
[2020-06-11] MEDS: Cyanocobalamin (Vitamin B-12) 1,000 MCG TABLET 1000 MCG PO (08:18)
[2020-06-11] MEDS: Divalproex Sodium 250 MG TABLET.DR PO (08:18)
[2020-06-11] MEDS: Lithium Carbonate 300 MG CAPSULE PO ×2 (08:18→20:22)
[2020-06-11] MEDS: amLODIPine Besylate 5 MG TABLET PO (08:18)
[2020-06-11] MEDS: Cariprazine HCl 1.5 MG CAPSULE PO (08:18)
[2020-06-11 16:54] VITALS: BP 136/79; PULSE 95; RESP 18; TEMP 36.6; O2SAT 97
--- NOTE | 2020-06-11 17:04 | P.PNPSI_ITS ---
Subjective Subjective Date of Service: 06/11/20 Reason For Visit: Bipolar Subjective Notes: Conditional Voluntary Interim History: Tolerated first Vraylar dosing. Will stop a.m. Olanzapine for 06/12, continue hs dosing Structured-in group or in his room sleeping. Reporting dreams/racing thoughts to team. Encouraged PHP attendance which he is wanting to do post discharge. Overall improved Medication Compliance: Yes Side effects from medications: No Attending Groups: Yes Review of Systems Review of Systems Yes all other systems are reviewed and are negative Reports behavioral changes Psychiatric: Reports behavioral changes, Reports difficulty concentrating and Reports mood swings Mental Status Exam Mental Status Exam Patient Appearance: Appropriate Patient Orientation: Person, Place, Time and Situation Level of Consciousness: Sedated Patient Behavior: Appropriate, Talkative, Cooperative, Asleep and Anxious Mood Description: Anxious Affect Description: Flat Patient Cognition Impaired: No Ability to Follow Directions: Good Speech Pattern: Appropriate, Spontaneous Speech and Soft-Spoken Memory Description: Episodic Impaired Hallucinations: None Delusions: Not Present Perceptual Disturbances: Depersonalization Thought Process: Racing Thought Content: positive for Racing and positive for Loose Associations Depressive Symptoms: Sleeping More Than Usual Judgement: Fair Diagnostics Vital Signs (24Hr): Vital Signs - 24 hr 06/10/20 19:07 06/11/20 06:00 06/11/20 08:18 Temperature 97.7 F 97.7 F Pulse Rate 99 71 100 Respiratory Rate 20 Blood Pressure 147/92 H 145/92 H 137/79 Pulse Oximetry 06/11/20 16:54 Temperature 97.9 F Pulse Rate 95 Respiratory Rate 18 Blood Pressure 136/79 Pulse Oximetry 97 Body Mass Index 24.0 Labs Results: 06/05/20 07:46 06/07/20 07:52 Medications Medications Current Medications Generic Name Dose Route Start Last Admin Trade Name Freq PRN Reason Stop Dose Admin Acetaminophen 650 mg 06/04/20 14:40 Acetaminophen 325 Mg Tablet PO Q6H PRN Headache/Pain Mild Scale (1-3) Al Hydroxide/Mg Hydroxide 30 ml 06/04/20 14:40 Magnesium Hydrox/Alum Hydrox 30 Ml Oral.Susp PO Q6H PRN Heartburn/Nausea Amlodipine Besylate 5 mg 06/06/20 23:30 06/11/20 08:18 Amlodipine Besylate 5 Mg Tablet PO 5 mg DAILY JUAN DANIEL Administration Protocol Cariprazine 1.5 mg 06/11/20 09:00 06/11/20 08:18 Cariprazine Hcl 1.5 Mg Capsule PO 1.5 mg DAILY JUAN DANIEL Administration Cyanocobalamin 1,000 mcg 06/07/20 00:00 06/11/20 08:18 Cyanocobalamin (Vitamin B-12) 1,000 Mcg Tablet PO 1,000 mcg DAILY JUAN DANIEL Administration Divalproex Sodium 250 mg 06/07/20 09:00 06/11/20 08:18 Divalproex Sodium 250 Mg Tablet. PO 250 mg DAILY JUAN DANIEL Administration Divalproex Sodium 500 mg 06/06/20 21:00 06/10/20 21:47 Divalproex Sodium 500 Mg Tablet. PO 500 mg BEDTIME JUAN DANIEL Administration Hydroxyzine HCl 25 mg 06/04/20 14:40 06/09/20 21:56 Hydroxyzine Hcl 25 Mg Tablet PO 25 mg BEDTIME PRN Administration Anxiety [place] Carbonate 300 mg 06/04/20 21:00 06/11/20 08:18 [place] Carbonate 300 Mg Capsule PO 300 mg BID JUAN DANIEL Administration Lorazepam 1 mg 06/04/20 15:29 06/09/20 21:56 Lorazepam 1 Mg Tablet PO 1 mg Q4H PRN Administration anxiety,agitation,leona Magnesium Hydroxide 30 ml 06/04/20 14:40 Milk Of Magnesia 30 Ml Oral.Susp PO DAILY PRN Constipation Olanzapine 5 mg 06/04/20 15:29 06/11/20 05:18 Olanzapine 5 Mg Tablet PO 5 mg Q4H PRN Administration agitation,leona,psychosis Olanzapine 5 mg 06/07/20 10:30 06/11/20 08:18 Olanzapine 5 Mg Tablet PO 5 mg DAILY JUAN DANIEL Administration Olanzapine 10 mg 06/07/20 21:00 06/10/20 21:46 Olanzapine 10 Mg Tablet PO 10 mg BEDTIME JUAN DANIEL Administration Allergies Allergies Allergy/AdvReac Type Severity Reaction Status Date / Time Penicillins Allergy Unknown Unknown Verified 06/04/20 14:31 trazodone Allergy Unknown Unknown Verified 06/04/20 14:30 Assessment & Plan Assessment & Plan (1) Bipolar 1 disorder: Status: Acute Code(s): F31.9 - Bipolar disorder, unspecified Assessment and Plan: Tolerating Vraylar Discontine a.m. Olanzapine. Greater than 50% of the session was spent on counseling and/or coordination of care Reason for contiued inpatient stay Substantial Risk for: harm to self, inability to function and rapid decompensation
[2020-06-11] MEDS: Divalproex Sodium 500 MG TABLET.DR PO (20:22)
[2020-06-11] MEDS: OLANZapine 10 MG TABLET PO (20:23)
[2020-06-12] MEDS: hydrOXYzine HCL 25 MG TABLET PO (01:32)
[2020-06-12 06:10] VITALS: BP 126/72; PULSE 98; RESP 16; TEMP 37.1; O2SAT 98
[2020-06-12 08:56] VITALS: BP 126/72; PULSE 98
[2020-06-12] MEDS: Lithium Carbonate 300 MG CAPSULE PO ×2 (08:56→22:04)
[2020-06-12] MEDS: Cariprazine HCl 1.5 MG CAPSULE PO (08:56)
[2020-06-12] MEDS: Divalproex Sodium 250 MG TABLET.DR PO (08:56)
[2020-06-12] MEDS: Cyanocobalamin (Vitamin B-12) 1,000 MCG TABLET 1000 MCG PO (08:56)
[2020-06-12] MEDS: amLODIPine Besylate 5 MG TABLET PO (08:56)
[2020-06-12 09:06] VITALS: BP 163/89; PULSE 89; RESP 18; TEMP 36.3; O2SAT 97
[2020-06-12 13:58] VITALS: BMI 25.4
[2020-06-12 17:45] VITALS: BP 127/72; PULSE 90; TEMP 36.5
--- NOTE | 2020-06-12 17:45 | P.PNPSI_ITS ---
Subjective Subjective Date of Service: 06/12/20 Reason For Visit: Bipolar Subjective Notes: Conditional Voluntary Interim History: Met with pt and partner, Ayanna. Ayanna reports pt is at baseline. Labs 06/13/20 Reports some nightmares and racing thoughts. Changed to 15 minute checks-pt believes he is prepared for this. Sleep is an issue. Discussed after Valproate level on 06/13 consolidation of Valproate 750 mg to HS with change to ER-beginning trial at 500-both agree (will make the change if level is within range). Tolerating Vraylar, will continue cross-titration. Pt reports he is feeling more settled but not 100%. Some racing of thought and experience of serendipity which he identifies as psychotic (ie- when I think of an object and it just appears before me I know I must of placed it so I could find it but I wonder if it just appears.) Plans PHP intake next week for ongoing support after discharge (early next week anticipated). Medication Compliance: Yes Side effects from medications: No Attending Groups: Yes Review of Systems Review of Systems Yes all other systems are reviewed and are negative Psychiatric: Reports abnormal sleep pattern, Reports difficulty concentrating, Reports paranoia and Reports hallucinations Mental Status Exam Mental Status Exam Patient Appearance: Appropriate Patient Orientation: Person, Place, Time and Situation Patient Behavior: Appropriate and Cooperative Mood Description: Calm Affect Description: Flat Patient Cognition Impaired: No Ability to Follow Directions: Good Speech Pattern: Spontaneous Speech Memory Description: Episodic Impaired Hallucinations: None Delusions: Present (diminishing) Thought Process: Illogical (at times he reports) and Goal Oriented Thought Content: positive for Tangential (at times) Depressive Symptoms: Difficulty Sleeping Judgement: Fair Diagnostics Vital Signs (24Hr): Vital Signs - 24 hr 06/12/20 06:10 06/12/20 08:56 06/12/20 09:06 Temperature 98.8 F 97.3 F Pulse Rate 98 98 89 Respiratory Rate 16 18 Blood Pressure 126/72 126/72 163/89 H Pulse Oximetry 98 97 Body Mass Index 25.4 Labs Results: 06/13/20 09:09 06/13/20 09:09 Medications Medications Current Medications Generic Name Dose Route Start Last Admin Trade Name Freq PRN Reason Stop Dose Admin Acetaminophen 650 mg 06/04/20 14:40 Acetaminophen 325 Mg Tablet PO Q6H PRN Headache/Pain Mild Scale (1-3) Al Hydroxide/Mg Hydroxide 30 ml 06/04/20 14:40 Magnesium Hydrox/Alum Hydrox 30 Ml Oral.Susp PO Q6H PRN Heartburn/Nausea Amlodipine Besylate 5 mg 06/06/20 23:30 06/12/20 08:56 Amlodipine Besylate 5 Mg Tablet PO 5 mg DAILY JUAN DANIEL Administration Protocol Cariprazine 1.5 mg 06/11/20 09:00 06/12/20 08:56 Cariprazine Hcl 1.5 Mg Capsule PO 1.5 mg DAILY JUAN DANIEL Administration Cyanocobalamin 1,000 mcg 06/07/20 00:00 06/12/20 08:56 Cyanocobalamin (Vitamin B-12) 1,000 Mcg Tablet PO 1,000 mcg DAILY JUAN DANIEL Administration Divalproex Sodium 250 mg 06/07/20 09:00 06/12/20 08:56 Divalproex Sodium 250 Mg Tablet. PO 250 mg DAILY JUAN DANIEL Administration Divalproex Sodium 500 mg 06/06/20 21:00 06/11/20 20:22 Divalproex Sodium 500 Mg Tablet. PO 500 mg BEDTIME JUAN DANIEL Administration Hydroxyzine HCl 25 mg 06/04/20 14:40 06/12/20 01:32 Hydroxyzine Hcl 25 Mg Tablet PO 25 mg BEDTIME PRN Administration Anxiety [place] Carbonate 300 mg 06/04/20 21:00 06/12/20 08:56 [place] Carbonate 300 Mg Capsule PO 300 mg BID JUAN DANIEL Administration Lorazepam 1 mg 06/04/20 15:29 06/09/20 21:56 Lorazepam 1 Mg Tablet PO 1 mg Q4H PRN Administration anxiety,agitation,leona Magnesium Hydroxide 30 ml 06/04/20 14:40 Milk Of Magnesia 30 Ml Oral.Susp PO DAILY PRN Constipation Olanzapine 5 mg 06/04/20 15:29 06/11/20 05:18 Olanzapine 5 Mg Tablet PO 5 mg Q4H PRN Administration agitation,leona,psychosis Olanzapine 10 mg 06/07/20 21:00 06/11/20 20:23 Olanzapine 10 Mg Tablet PO 10 mg BEDTIME JUAN DANIEL Administration Allergies Allergies Allergy/AdvReac Type Severity Reaction Status Date / Time Penicillins Allergy Unknown Unknown Verified 06/04/20 14:31 trazodone Allergy Unknown Unknown Verified 06/04/20 14:30 Assessment & Plan Assessment & Plan (1) Bipolar 1 disorder: Status: Acute Code(s): F31.9 - Bipolar disorder, unspecified Greater than 50% of the session was spent on counseling and/or coordination of care Reason for contiued inpatient stay Substantial Risk for: rapid decompensation
[2020-06-12] MEDS: Divalproex Sodium 500 MG TABLET.DR PO (22:04)
[2020-06-12] MEDS: OLANZapine 10 MG TABLET PO (22:04)
[2020-06-13] MEDS: hydrOXYzine HCL 25 MG TABLET PO ×2 (01:00→22:29)
[2020-06-13] MEDS: LORazepam 1 MG TABLET PO ×2 (01:00→22:29)
[2020-06-13] MEDS: OLANZapine 5 MG TABLET PO (01:00)
[2020-06-13 06:20] VITALS: BP 111/59; PULSE 102; RESP 18; TEMP 36.6; O2SAT 97
[2020-06-13 08:29] VITALS: BP 126/76; PULSE 89; RESP 16; TEMP 36.9; O2SAT 98
[2020-06-13 08:35] VITALS: BP 126/76; PULSE 89
[2020-06-13] MEDS: amLODIPine Besylate 5 MG TABLET PO (08:35)
[2020-06-13] MEDS: Cyanocobalamin (Vitamin B-12) 1,000 MCG TABLET 1000 MCG PO (08:36)
[2020-06-13] MEDS: Divalproex Sodium 250 MG TABLET.DR PO (08:36)
[2020-06-13] MEDS: Lithium Carbonate 300 MG CAPSULE PO ×2 (08:36→22:29)
[2020-06-13] MEDS: Cariprazine HCl 1.5 MG CAPSULE PO (08:36)
[2020-06-13 09:26] LABS: Basophils Absolute Auto 0.1 X10*3/uL (0.0-0.2); Basophils Percent Auto 0.7 % (0-2); Eosinophils Absolute Auto 0.2 X10*3/uL (0.0-0.4); Eosinophils Percent Auto 2.7 % (0-4); Hematocrit 45.2 % (42-52); Hemoglobin 14.6 g/dl (14.0-18.0); Imm Gran Abs Auto 0.05 X10*3/uL (0.00-0.03); Imm Gran Pct Auto 0.7 % (0.0-0.4); Lymphocytes Absolute Auto 1.7 X10*3/uL (1.2-4.9); MANUAL DIFF FLAG NO; Mean Corpuscular HGB Conc 32.3 g/dl (31.0-36.0); Mean Corpuscular Hemoglobin 30.7 pg (27.0-33.0); Mean Platelet Volume 10.6 fL (9.4-12.4); Monocytes Absolute Auto 0.7 X10*3/uL (0.1-1.2); Monocytes Percent Auto 9.8 % (2-11); Neutrophils Absolute Auto 4.7 X10*3/uL (2.0-8.3); Neutrophils Percent Auto 63.1 % (45-73); Platelet Count 215 X10*3/uL (160-400); Red Blood Count 4.76 X10*6/uL (4.60-5.80); White Blood Count 7.5 X10*3/uL (4.8-10.8)
[2020-06-13 09:40] LABS: Lithium 0.45 mmol/L (0.60-1.20)
[2020-06-13 09:50] LABS: Valproate 71.3 mcg/mL (50.0-100.0)
[2020-06-13 09:59] LABS: Alanine Aminotransferase 28 U/L (0-40); Albumin Level 3.8 g/dL (3.5-5.0); Alkaline Phosphatase 32 U/L (39-117); Anion Gap 13 (12-20); Aspartate Amino Transferase 14 U/L (5-37); Bilirubin Total 0.3 mg/dL (0.0-1.0); Blood Urea Nitrogen 13 mg/dL (9-16); Calcium 9.1 mg/dL (8.4-10.2); Carbon Dioxide 27 mmol/L (22-29); Chloride 105 mmol/L (96-108); Estimated Glomerular Filt Rate > 60; Glucose Random 157 mg/dL (60-115); Potassium 4.1 mmol/L (3.3-5.1); Sodium 141 mmol/L (135-145); Total Protein 6.4 g/dL (6.5-8.0)
[2020-06-13 10:21] LABS: Thyroid Stimulating Hormone 1.34 uIU/mL (0.32-4.0)
--- NOTE | 2020-06-13 15:22 | HO.PSYCHPN ---
Subjective Subjective Date of Service: 06/13/20 Reason For Visit: Bipolar Subjective Notes: Conditional Voluntary Interim History: Continues to tolerate low dose Vraylar without adverse event. Will titrate over the weekend. Labs drawn today WNL. Sleep remains an issue-tonight Depakote changed from 250 mg a.m. 500 mg p.m. to ER 500 mg hs-will titrate over the weekend. Partner Ayanna searching for OP eval for pt for non-verbal learning disorder-call to [facility]-insurance will not cover their service, call to Dr. Gallardo's office and they are not completing that type of eval. Call to [facility] [phone]. Pt to call to schedule appt. Discharge anticipated for early next week upon completion of Vraylar titration Medication Compliance: Yes Side effects from medications: No Attending Groups: Yes Review of Systems Review of Systems Yes all other systems are reviewed and are negative Psychiatric: Reports abnormal sleep pattern and Reports difficulty concentrating Mental Status Exam Mental Status Exam Patient Appearance: Appropriate Patient Orientation: Person, Place, Time and Situation Level of Consciousness: Awake and Alert Patient Behavior: Appropriate, Talkative and Cooperative Mood Description: Calm Affect Description: Calm Patient Cognition Impaired: No Ability to Follow Directions: Good Speech Pattern: Spontaneous Speech Memory Description: Episodic Impaired Hallucinations: None Delusions: Present (reports it is resolving.) Thought Process: Goal Oriented and Confusion (resolving) Thought Content: positive for Loose Associations (resolving) and positive for Suicidal Ideation (denies SI plan or intent) Depressive Symptoms: Difficulty Sleeping and Difficulty Concentrating Judgement: Good Diagnostics Vital Signs (24Hr): Vital Signs - 24 hr 06/12/20 17:45 06/13/20 06:20 06/13/20 08:29 Temperature 97.7 F 97.9 F 98.5 F Pulse Rate 90 102 H 89 Respiratory Rate 18 16 Blood Pressure 127/72 111/59 L 126/76 Pulse Oximetry 97 98 06/13/20 08:35 Temperature Pulse Rate 89 Respiratory Rate Blood Pressure 126/76 Pulse Oximetry Body Mass Index 25.4 Labs Results: 06/13/20 09:09 06/13/20 09:09 Labs: Laboratory Results - last 48 hr 06/13/20 06/13/20 06/13/20 09:09 09:09 09:09 WBC 7.5 RBC 4.76 Hgb 14.6 Hct 45.2 MCV 95.0 MCH 30.7 MCHC 32.3 RDW 13.0 Plt Count 215 MPV 10.6 Immature Gran % (Auto) 0.7 H Neut % (Auto) 63.1 Lymph % (Auto) 23.0 [place] % (Auto) 9.8 Eos % (Auto) 2.7 Baso % (Auto) 0.7 Lymph # (Auto) 1.7 [place] # (Auto) 0.7 Eos # (Auto) 0.2 Baso # (Auto) 0.1 Abs Immat Gran (auto) 0.05 H Absolute Neuts (auto) 4.7 Absolute Nucleated RBC 0.000 Nucleated RBC % (auto) 0.0 Sodium 141 Potassium 4.1 Chloride 105 Carbon Dioxide 27 Anion Gap 13 BUN 13 Creatinine 0.97 Estim Creat Clear Calc 84.0 Estimated GFR > 60 Random Glucose 157 H Calcium 9.1 Total Bilirubin 0.3 AST 14 D ALT 28 Alkaline Phosphatase 32 L Total Protein 6.4 L Albumin 3.8 TSH 1.34 Valproic Acid 71.3 [place] 0.45 L Medications Medications Current Medications Generic Name Dose Route Start Last Admin Trade Name Freq PRN Reason Stop Dose Admin Acetaminophen 650 mg 06/04/20 14:40 Acetaminophen 325 Mg Tablet PO Q6H PRN Headache/Pain Mild Scale (1-3) Al Hydroxide/Mg Hydroxide 30 ml 06/04/20 14:40 Magnesium Hydrox/Alum Hydrox 30 Ml Oral.Susp PO Q6H PRN Heartburn/Nausea Amlodipine Besylate 5 mg 06/06/20 23:30 06/13/20 08:35 Amlodipine Besylate 5 Mg Tablet PO 5 mg DAILY JUAN DANIEL Administration Protocol Cariprazine 1.5 mg 06/11/20 09:00 06/13/20 08:36 Cariprazine Hcl 1.5 Mg Capsule PO 1.5 mg DAILY JUAN DANIEL Administration Cyanocobalamin 1,000 mcg 06/07/20 00:00 06/13/20 08:36 Cyanocobalamin (Vitamin B-12) 1,000 Mcg Tablet PO 1,000 mcg DAILY JUAN DANIEL Administration Divalproex Sodium 500 mg 06/13/20 21:00 Divalproex Sodium Er 500 Mg Tab.Er.24h PO BEDTIME JUAN DANIEL Hydroxyzine HCl 25 mg 06/04/20 14:40 06/13/20 01:00 Hydroxyzine Hcl 25 Mg Tablet PO 25 mg BEDTIME PRN Administration Anxiety [place] Carbonate 300 mg 06/04/20 21:00 06/13/20 08:36 [place] Carbonate 300 Mg Capsule PO 300 mg BID JUAN DANIEL Administration Lorazepam 1 mg 06/04/20 15:29 06/13/20 01:00 Lorazepam 1 Mg Tablet PO 1 mg Q4H PRN Administration anxiety,agitation,leona Magnesium Hydroxide 30 ml 06/04/20 14:40 Milk Of Magnesia 30 Ml Oral.Susp PO DAILY PRN Constipation Olanzapine 5 mg 06/04/20 15:29 06/13/20 01:00 Olanzapine 5 Mg Tablet PO 5 mg Q4H PRN Administration agitation,leona,psychosis Olanzapine 10 mg 06/07/20 21:00 06/12/20 22:04 Olanzapine 10 Mg Tablet PO 10 mg BEDTIME JUAN DANIEL Administration Allergies Allergies Allergy/AdvReac Type Severity Reaction Status Date / Time Penicillins Allergy Unknown Unknown Verified 06/04/20 14:31 trazodone Allergy Unknown Unknown Verified 06/04/20 14:30 Assessment & Plan Assessment & Plan (1) Bipolar 1 disorder: Status: Acute Code(s): F31.9 - Bipolar disorder, unspecified Greater than 50% of the session was spent on counseling and/or coordination of care Reason for contiued inpatient stay Substantial Risk for: rapid decompensation
[2020-06-13 18:00] VITALS: BP 138/89; PULSE 109; TEMP 37.1
[2020-06-13] MEDS: Divalproex Sodium ER 500 MG TAB.ER.24H PO (22:29)
[2020-06-13] MEDS: OLANZapine 10 MG TABLET PO (22:29)
[2020-06-14] MEDS: OLANZapine 5 MG TABLET PO ×2 (01:41→21:23)
[2020-06-14 06:00] VITALS: BP 119/67; PULSE 81; TEMP 36.8
[2020-06-14] MEDS: Cariprazine HCl 1.5 MG CAPSULE PO (09:16)
[2020-06-14] MEDS: Lithium Carbonate 300 MG CAPSULE PO ×2 (09:16→20:26)
[2020-06-14] MEDS: Cyanocobalamin (Vitamin B-12) 1,000 MCG TABLET 1000 MCG PO (09:16)
[2020-06-14 09:21] VITALS: BP 119/67; PULSE 87
[2020-06-14] MEDS: amLODIPine Besylate 5 MG TABLET PO (09:21)
--- NOTE | 2020-06-14 15:33 | HO.PSYCHPN ---
Subjective Subjective Date of Service: 06/14/20 Reason For Visit: Bipolar Subjective Notes: Conditional Voluntary Interim History: Reports TREVON with need for prn medication. Discussed titration of Depakote ER to 1000 mg hs which he agreed to. Medication Compliance: Yes Side effects from medications: No Attending Groups: Yes Review of Systems Review of Systems Yes all other systems are reviewed and are negative (denies) Mental Status Exam Mental Status Exam Patient Appearance: Appropriate Patient Orientation: Person, Place, Time and Situation Level of Consciousness: Alert Patient Behavior: Appropriate and Cooperative Mood Description: Flat Affect Description: Flat Patient Cognition Impaired: No Ability to Follow Directions: Good Speech Pattern: Spontaneous Speech Memory Description: Episodic Impaired Hallucinations: None (denies) Delusions: Not Present Thought Process: Distracted Thought Content: positive for Flight of Ideas, positive for Tangential and positive for Suicidal Ideation (denies) Depressive Symptoms: Difficulty Sleeping Judgement: Fair Diagnostics Vital Signs (24Hr): Vital Signs - 24 hr 06/13/20 18:00 06/14/20 06:00 06/14/20 09:21 Temperature 98.8 F 98.3 F Pulse Rate 109 H 81 87 Blood Pressure 138/89 119/67 119/67 Body Mass Index 25.4 Labs Results: 06/13/20 09:09 06/13/20 09:09 Labs: Laboratory Results - last 48 hr 06/13/20 06/13/20 06/13/20 09:09 09:09 09:09 WBC 7.5 RBC 4.76 Hgb 14.6 Hct 45.2 MCV 95.0 MCH 30.7 MCHC 32.3 RDW 13.0 Plt Count 215 MPV 10.6 Immature Gran % (Auto) 0.7 H Neut % (Auto) 63.1 Lymph % (Auto) 23.0 [place] % (Auto) 9.8 Eos % (Auto) 2.7 Baso % (Auto) 0.7 Lymph # (Auto) 1.7 [place] # (Auto) 0.7 Eos # (Auto) 0.2 Baso # (Auto) 0.1 Abs Immat Gran (auto) 0.05 H Absolute Neuts (auto) 4.7 Absolute Nucleated RBC 0.000 Nucleated RBC % (auto) 0.0 Sodium 141 Potassium 4.1 Chloride 105 Carbon Dioxide 27 Anion Gap 13 BUN 13 Creatinine 0.97 Estim Creat Clear Calc 84.0 Estimated GFR > 60 Random Glucose 157 H Calcium 9.1 Total Bilirubin 0.3 AST 14 D ALT 28 Alkaline Phosphatase 32 L Total Protein 6.4 L Albumin 3.8 TSH 1.34 Valproic Acid 71.3 [place] 0.45 L Medications Medications Current Medications Generic Name Dose Route Start Last Admin Trade Name Freq PRN Reason Stop Dose Admin Acetaminophen 650 mg 06/04/20 14:40 Acetaminophen 325 Mg Tablet PO Q6H PRN Headache/Pain Mild Scale (1-3) Al Hydroxide/Mg Hydroxide 30 ml 06/04/20 14:40 Magnesium Hydrox/Alum Hydrox 30 Ml Oral.Susp PO Q6H PRN Heartburn/Nausea Amlodipine Besylate 5 mg 06/06/20 23:30 06/14/20 09:21 Amlodipine Besylate 5 Mg Tablet PO 5 mg DAILY JUAN DANIEL Administration Protocol Cariprazine 1.5 mg 06/11/20 09:00 06/14/20 09:16 Cariprazine Hcl 1.5 Mg Capsule PO 1.5 mg DAILY JUAN DANIEL Administration Cyanocobalamin 1,000 mcg 06/07/20 00:00 06/14/20 09:16 Cyanocobalamin (Vitamin B-12) 1,000 Mcg Tablet PO 1,000 mcg DAILY JUAN DANIEL Administration Divalproex Sodium 1,000 mg 06/14/20 21:00 Divalproex Sodium Er 500 Mg Tab.Er.24h PO BEDTIME JUAN DANIEL Hydroxyzine HCl 25 mg 06/04/20 14:40 06/13/20 22:29 Hydroxyzine Hcl 25 Mg Tablet PO 25 mg BEDTIME PRN Administration Anxiety [place] Carbonate 300 mg 06/04/20 21:00 06/14/20 09:16 [place] Carbonate 300 Mg Capsule PO 300 mg BID JUAN DANIEL Administration Lorazepam 1 mg 06/04/20 15:29 06/13/20 22:29 Lorazepam 1 Mg Tablet PO 1 mg Q4H PRN Administration anxiety,agitation,leona Magnesium Hydroxide 30 ml 06/04/20 14:40 Milk Of Magnesia 30 Ml Oral.Susp PO DAILY PRN Constipation Olanzapine 5 mg 06/04/20 15:29 06/14/20 01:41 Olanzapine 5 Mg Tablet PO 5 mg Q4H PRN Administration agitation,leona,psychosis Olanzapine 10 mg 06/07/20 21:00 06/13/20 22:29 Olanzapine 10 Mg Tablet PO 10 mg BEDTIME JUAN DANIEL Administration Allergies Allergies Allergy/AdvReac Type Severity Reaction Status Date / Time Penicillins Allergy Unknown Unknown Verified 06/04/20 14:31 trazodone Allergy Unknown Unknown Verified 06/04/20 14:30 Assessment & Plan Assessment & Plan (1) Bipolar 1 disorder: Status: Acute Code(s): F31.9 - Bipolar disorder, unspecified Greater than 50% of the session was spent on counseling and/or coordination of care Reason for contiued inpatient stay Substantial Risk for: harm to self, inability to function and rapid decompensation
[2020-06-14 18:00] VITALS: BP 159/76; PULSE 92; RESP 18; TEMP 37; O2SAT 98
[2020-06-14] MEDS: OLANZapine 10 MG TABLET PO (20:26)
[2020-06-14] MEDS: Divalproex Sodium ER 500 MG TAB.ER.24H 1000 MG PO (20:26)
[2020-06-14 20:31] VITALS: BP 122/71; PULSE 75
[2020-06-15 06:00] VITALS: BP 130/65; PULSE 87; RESP 14; TEMP 36.6; O2SAT 98
[2020-06-15] MEDS: Cyanocobalamin (Vitamin B-12) 1,000 MCG TABLET 1000 MCG PO (08:26)
[2020-06-15] MEDS: Cariprazine HCl 1.5 MG CAPSULE PO (08:26)
[2020-06-15 08:27] VITALS: BP 137/79; PULSE 91
[2020-06-15] MEDS: amLODIPine Besylate 5 MG TABLET PO (08:27)
[2020-06-15] MEDS: Lithium Carbonate 300 MG CAPSULE PO ×2 (08:27→21:51)
--- NOTE | 2020-06-15 08:28 | P.PNPSI_ITS ---
Subjective Subjective Date of Service: 06/15/20 Reason For Visit: Bipolar Subjective Notes: Conditional Voluntary Interim History: reports he was able to sleep for six hours with Depakote changes and Olanzapine prn. Will continue on same plan. Reports he is feeling improved. Will plan to increase Vraylar on 06/16. Medication Compliance: Yes Side effects from medications: No Attending Groups: Yes Review of Systems Review of Systems Yes all other systems are reviewed and are negative Psychiatric: Reports abnormal sleep pattern Mental Status Exam Mental Status Exam Patient Appearance: Well Grooomed Patient Orientation: Person, Place, Time and Situation Level of Consciousness: Alert Patient Behavior: Appropriate, Talkative, Cooperative and Good Eye Contact Mood Description: Calm Affect Description: Calm Patient Cognition Impaired: No Ability to Follow Directions: Good Speech Pattern: Spontaneous Speech Memory Description: Episodic Impaired Hallucinations: None Delusions: Not Present Thought Process: Distracted (at times) and Linear Thought Content: positive for Intact, positive for Linear, positive for Logical and positive for Suicidal Ideation (denies SI) Depressive Symptoms: Insomnia and Difficulty Sleeping Judgement: Good Diagnostics Vital Signs (24Hr): Vital Signs - 24 hr 06/14/20 09:21 06/14/20 18:00 06/14/20 20:31 Temperature 98.6 F Pulse Rate 87 92 75 Respiratory Rate 18 Blood Pressure 119/67 159/76 H 122/71 Pulse Oximetry 98 06/15/20 06:00 Temperature 97.8 F Pulse Rate 87 Respiratory Rate 14 Blood Pressure 130/65 Pulse Oximetry 98 Body Mass Index 25.4 Labs Results: 06/13/20 09:09 06/13/20 09:09 Labs: Laboratory Results - last 48 hr 06/13/20 06/13/20 06/13/20 09:09 09:09 09:09 WBC 7.5 RBC 4.76 Hgb 14.6 Hct 45.2 MCV 95.0 MCH 30.7 MCHC 32.3 RDW 13.0 Plt Count 215 MPV 10.6 Immature Gran % (Auto) 0.7 H Neut % (Auto) 63.1 Lymph % (Auto) 23.0 [place] % (Auto) 9.8 Eos % (Auto) 2.7 Baso % (Auto) 0.7 Lymph # (Auto) 1.7 [place] # (Auto) 0.7 Eos # (Auto) 0.2 Baso # (Auto) 0.1 Abs Immat Gran (auto) 0.05 H Absolute Neuts (auto) 4.7 Absolute Nucleated RBC 0.000 Nucleated RBC % (auto) 0.0 Sodium 141 Potassium 4.1 Chloride 105 Carbon Dioxide 27 Anion Gap 13 BUN 13 Creatinine 0.97 Estim Creat Clear Calc 84.0 Estimated GFR > 60 Random Glucose 157 H Calcium 9.1 Total Bilirubin 0.3 AST 14 D ALT 28 Alkaline Phosphatase 32 L Total Protein 6.4 L Albumin 3.8 TSH 1.34 Valproic Acid 71.3 [place] 0.45 L Medications Medications Current Medications Generic Name Dose Route Start Last Admin Trade Name Freq PRN Reason Stop Dose Admin Acetaminophen 650 mg 06/04/20 14:40 Acetaminophen 325 Mg Tablet PO Q6H PRN Headache/Pain Mild Scale (1-3) Al Hydroxide/Mg Hydroxide 30 ml 06/04/20 14:40 Magnesium Hydrox/Alum Hydrox 30 Ml Oral.Susp PO Q6H PRN Heartburn/Nausea Amlodipine Besylate 5 mg 06/06/20 23:30 06/14/20 09:21 Amlodipine Besylate 5 Mg Tablet PO 5 mg DAILY JUAN DANIEL Administration Protocol Cariprazine 1.5 mg 06/11/20 09:00 06/14/20 09:16 Cariprazine Hcl 1.5 Mg Capsule PO 1.5 mg DAILY JUAN DANIEL Administration Cyanocobalamin 1,000 mcg 06/07/20 00:00 06/14/20 09:16 Cyanocobalamin (Vitamin B-12) 1,000 Mcg Tablet PO 1,000 mcg DAILY JUAN DANIEL Administration Divalproex Sodium 1,000 mg 06/14/20 21:00 06/14/20 20:26 Divalproex Sodium Er 500 Mg Tab.Er.24h PO 1,000 mg BEDTIME JUAN DANIEL Administration Hydroxyzine HCl 25 mg 06/04/20 14:40 06/13/20 22:29 Hydroxyzine Hcl 25 Mg Tablet PO 25 mg BEDTIME PRN Administration Anxiety [place] Carbonate 300 mg 06/04/20 21:00 06/14/20 20:26 [place] Carbonate 300 Mg Capsule PO 300 mg BID JUAN DANIEL Administration Lorazepam 1 mg 06/04/20 15:29 06/13/20 22:29 Lorazepam 1 Mg Tablet PO 1 mg Q4H PRN Administration anxiety,agitation,leona Magnesium Hydroxide 30 ml 06/04/20 14:40 Milk Of Magnesia 30 Ml Oral.Susp PO DAILY PRN Constipation Olanzapine 5 mg 06/04/20 15:29 06/14/20 21:23 Olanzapine 5 Mg Tablet PO 5 mg Q4H PRN Administration agitation,leona,psychosis Olanzapine 10 mg 06/07/20 21:00 06/14/20 20:26 Olanzapine 10 Mg Tablet PO 10 mg BEDTIME JUAN DANIEL Administration Allergies Allergies Allergy/AdvReac Type Severity Reaction Status Date / Time Penicillins Allergy Unknown Unknown Verified 06/04/20 14:31 trazodone Allergy Unknown Unknown Verified 06/04/20 14:30 Assessment & Plan Assessment & Plan (1) Bipolar 1 disorder: Status: Acute Code(s): F31.9 - Bipolar disorder, unspecified Assessment and Plan: -Increase Vraylar to 3 mg daily on 06/16/20. Greater than 50% of the session was spent on counseling and/or coordination of care Reason for contiued inpatient stay Substantial Risk for: rapid decompensation
[2020-06-15 16:52] VITALS: BP 140/79; PULSE 92; RESP 18; TEMP 36.8; O2SAT 98
[2020-06-15] MEDS: OLANZapine 10 MG TABLET PO (21:51)
[2020-06-15] MEDS: Divalproex Sodium ER 500 MG TAB.ER.24H 1000 MG PO (21:52)
[2020-06-15] MEDS: OLANZapine 5 MG TABLET PO (23:26)
[2020-06-16] MEDS: hydrOXYzine HCL 25 MG TABLET PO (02:24)
[2020-06-16] MEDS: LORazepam 1 MG TABLET PO (02:24)
[2020-06-16 05:55] VITALS: BP 119/78; PULSE 100; RESP 18; TEMP 36.5; O2SAT 97
[2020-06-16 08:43] VITALS: BP 151/69; PULSE 89
[2020-06-16] MEDS: amLODIPine Besylate 5 MG TABLET PO (08:43)
[2020-06-16] MEDS: Cyanocobalamin (Vitamin B-12) 1,000 MCG TABLET 1000 MCG PO (08:45)
[2020-06-16] MEDS: Cariprazine HCl 3 MG CAPSULE PO (08:45)
[2020-06-16] MEDS: Lithium Carbonate 300 MG CAPSULE PO ×2 (08:45→20:57)
--- NOTE | 2020-06-16 12:46 | HO.PSYCHPN ---
Subjective Subjective Date of Service: 06/16/20 Reason For Visit: Bipolar Subjective Notes: Conditional Voluntary Interim History: Met with pt and partner, Ayanna. Pt continues to struggle with sleep-night terrors, PTSD . He is attempting to interrupt ritualistic behaviors when awakening and is successful. Discussed trial of Prazosin which he is open to. Vraylar increased to 3 mg a.m. today. Will decreasing Olanzapine to 5 mg hs with prn. Pt spoke of his time in a [place] nursing home and the traumatic effects which effect sleep. Plans discharge for 06/18 with PHP intake on that same day. Medication Compliance: Yes Side effects from medications: Yes (insomnia) Attending Groups: Yes Review of Systems Review of Systems Yes all other systems are reviewed and are negative (denies) Psychiatric: Reports abnormal sleep pattern, Reports anxiety and Reports difficulty concentrating Mental Status Exam Mental Status Exam Patient Appearance: Well Grooomed Patient Orientation: Person, Place, Time and Situation Level of Consciousness: Alert Patient Behavior: Appropriate, Talkative and Cooperative Mood Description: Calm and Appropriate Affect Description: Flat Patient Cognition Impaired: No Ability to Follow Directions: Good Speech Pattern: Spontaneous Speech and Soft-Spoken Memory Description: Episodic Impaired Hallucinations: None Delusions: Present (able to reality test through them-?PTSD related) Thought Process: Intact Thought Content: positive for Intact Depressive Symptoms: Insomnia and Difficulty Sleeping Judgement: Good Diagnostics Vital Signs (24Hr): Vital Signs - 24 hr 06/15/20 16:52 06/16/20 05:55 06/16/20 08:43 Temperature 98.3 F 97.7 F Pulse Rate 92 100 89 Respiratory Rate 18 18 Blood Pressure 140/79 H 119/78 151/69 H Pulse Oximetry 98 97 Body Mass Index 25.4 Labs Results: 06/13/20 09:09 06/13/20 09:09 Medications Medications Current Medications Generic Name Dose Route Start Last Admin Trade Name Freq PRN Reason Stop Dose Admin Acetaminophen 650 mg 06/04/20 14:40 Acetaminophen 325 Mg Tablet PO Q6H PRN Headache/Pain Mild Scale (1-3) Al Hydroxide/Mg Hydroxide 30 ml 06/04/20 14:40 Magnesium Hydrox/Alum Hydrox 30 Ml Oral.Susp PO Q6H PRN Heartburn/Nausea Amlodipine Besylate 5 mg 06/06/20 23:30 06/16/20 08:43 Amlodipine Besylate 5 Mg Tablet PO 5 mg DAILY JUAN DANIEL Administration Protocol Cariprazine 3 mg 06/16/20 09:00 06/16/20 08:45 Cariprazine Hcl 3 Mg Capsule PO 3 mg DAILY JUAN DANIEL Administration Cyanocobalamin 1,000 mcg 06/07/20 00:00 06/16/20 08:45 Cyanocobalamin (Vitamin B-12) 1,000 Mcg Tablet PO 1,000 mcg DAILY JUAN DANIEL Administration Divalproex Sodium 1,000 mg 06/14/20 21:00 06/15/20 21:52 Divalproex Sodium Er 500 Mg Tab.Er.24h PO 1,000 mg BEDTIME JUAN DANIEL Administration Hydroxyzine HCl 25 mg 06/04/20 14:40 06/16/20 02:24 Hydroxyzine Hcl 25 Mg Tablet PO 25 mg BEDTIME PRN Administration Anxiety [place] Carbonate 300 mg 06/04/20 21:00 06/16/20 08:45 [place] Carbonate 300 Mg Capsule PO 300 mg BID JUAN DANIEL Administration Lorazepam 1 mg 06/04/20 15:29 06/16/20 02:24 Lorazepam 1 Mg Tablet PO 1 mg Q4H PRN Administration anxiety,agitation,leona Magnesium Hydroxide 30 ml 06/04/20 14:40 Milk Of Magnesia 30 Ml Oral.Susp PO DAILY PRN Constipation Olanzapine 5 mg 06/04/20 15:29 06/15/20 23:26 Olanzapine 5 Mg Tablet PO 5 mg Q4H PRN Administration agitation,leona,psychosis Olanzapine 5 mg 06/16/20 21:00 Olanzapine 5 Mg Tablet PO BEDTIME JUAN DANIEL Prazosin HCl 1 mg 06/16/20 21:00 Prazosin Hcl 1 Mg Capsule PO BEDTIME [facility] Protocol Allergies Allergies Allergy/AdvReac Type Severity Reaction Status Date / Time Penicillins Allergy Unknown Unknown Verified 06/04/20 14:31 trazodone Allergy Unknown Unknown Verified 06/04/20 14:30 Assessment & Plan Assessment & Plan (1) Bipolar 1 disorder: Status: Acute Code(s): F31.9 - Bipolar disorder, unspecified Assessment and Plan: -Decrease HS Olanzapine to 5 mg. Continue prn Olanzapine. -Prazosin 1 mg HS for mgt of nightmares. Greater than 50% of the session was spent on counseling and/or coordination of care Reason for contiued inpatient stay Substantial Risk for: inability to function and rapid decompensation
[2020-06-16 16:19] VITALS: BP 127/56; PULSE 89; RESP 18; TEMP 36.8
[2020-06-16 20:57] VITALS: BP 150/70; PULSE 94
[2020-06-16] MEDS: OLANZapine 5 MG TABLET PO ×2 (20:57→22:45)
[2020-06-16] MEDS: Prazosin HCL 1 MG CAPSULE PO (20:57)
[2020-06-17] MEDS: hydrOXYzine HCL 25 MG TABLET PO ×2 (00:56→23:49)
[2020-06-17] MEDS: LORazepam 1 MG TABLET PO ×2 (00:57→23:49)
[2020-06-17 06:25] VITALS: BP 115/56; PULSE 107; RESP 18; TEMP 36.7; O2SAT 98
[2020-06-17 08:47] VITALS: BP 141/83; PULSE 107
[2020-06-17] MEDS: amLODIPine Besylate 5 MG TABLET PO (08:47)
[2020-06-17] MEDS: Lithium Carbonate 300 MG CAPSULE PO ×2 (08:47→22:37)
[2020-06-17] MEDS: Cyanocobalamin (Vitamin B-12) 1,000 MCG TABLET 1000 MCG PO (08:47)
--- NOTE | 2020-06-17 14:53 | HO.PSYCHPN ---
Subjective Subjective Date of Service: 06/17/20 Reason For Visit: Bipolar Subjective Notes: Conditional Voluntary Interim History: Planning discharge for 06/17/20 to [facility] hospital program. Called re EEG results-to be read today. Reports some improvement with sleep-continued to need Atarax/Lorazepam. Prazosin helpful but not strong enough-will trial increase to 2 mg HS. Asks to return to Olanzapine 10 mg hs and will taper as sleep improves at home. Reports dry skin/rash bilateral LE-Hydrocortisone cream ordered. Feeling ready to discharge and move to the next level of treatment. Discussed that most of his symptoms are PTSD related, especially sleep-given traumatic experience in [facility]. Medication Compliance: Yes Side effects from medications: No (Observing BLE dry skin/rash) Attending Groups: Yes Review of Systems Review of Systems Yes all other systems are reviewed and are negative (denies) Skin/Breast: Reports rash (BLE-pt reports dry skin-has had this sx prior to medicines he reports.) Psychiatric: Reports abnormal sleep pattern Mental Status Exam Mental Status Exam Patient Orientation: Person, Place, Time and Situation Level of Consciousness: Alert Patient Behavior: Appropriate, Talkative, Cooperative and Good Eye Contact Mood Description: Calm and Appropriate Affect Description: Calm Patient Cognition Impaired: No Ability to Follow Directions: Good Speech Pattern: Spontaneous Speech Memory Description: Episodic Impaired Hallucinations: None Delusions: Not Present Thought Process: Intact Thought Content: positive for Intact Depressive Symptoms: Difficulty Sleeping Judgement: Good Diagnostics Vital Signs (24Hr): Vital Signs - 24 hr 06/16/20 16:19 06/16/20 20:57 06/17/20 06:25 Temperature 98.3 F 98.1 F Pulse Rate 89 94 107 H Respiratory Rate 18 18 Blood Pressure 127/56 L 150/70 H 115/56 L Pulse Oximetry 98 06/17/20 08:47 Temperature Pulse Rate 107 H Respiratory Rate Blood Pressure 141/83 H Pulse Oximetry Body Mass Index 25.4 Labs Results: 06/13/20 09:09 06/13/20 09:09 Imaging Radiology Impressions: EEG Results pending. Medications Medications Current Medications Generic Name Dose Route Start Last Admin Trade Name Freq PRN Reason Stop Dose Admin Acetaminophen 650 mg 06/04/20 14:40 Acetaminophen 325 Mg Tablet PO Q6H PRN Headache/Pain Mild Scale (1-3) Al Hydroxide/Mg Hydroxide 30 ml 06/04/20 14:40 Magnesium Hydrox/Alum Hydrox 30 Ml Oral.Susp PO Q6H PRN Heartburn/Nausea Amlodipine Besylate 5 mg 06/06/20 23:30 06/17/20 08:47 Amlodipine Besylate 5 Mg Tablet PO 5 mg DAILY JUAN DANIEL Administration Protocol Cariprazine 3 mg 06/16/20 09:00 06/16/20 08:45 Cariprazine Hcl 3 Mg Capsule PO 3 mg DAILY JUAN DANIEL Administration Cyanocobalamin 1,000 mcg 06/07/20 00:00 06/17/20 08:47 Cyanocobalamin (Vitamin B-12) 1,000 Mcg Tablet PO 1,000 mcg DAILY JUAN DANIEL Administration Divalproex Sodium 1,000 mg 06/14/20 21:00 06/15/20 21:52 Divalproex Sodium Er 500 Mg Tab.Er.24h PO 1,000 mg BEDTIME JUAN DANIEL Administration Hydroxyzine HCl 25 mg 06/04/20 14:40 06/17/20 00:56 Hydroxyzine Hcl 25 Mg Tablet PO 25 mg BEDTIME PRN Administration Anxiety [place] Carbonate 300 mg 06/04/20 21:00 06/17/20 08:47 [place] Carbonate 300 Mg Capsule PO 300 mg BID JUAN DANIEL Administration Lorazepam 1 mg 06/04/20 15:29 06/17/20 00:57 Lorazepam 1 Mg Tablet PO 1 mg Q4H PRN Administration anxiety,agitation,leona Magnesium Hydroxide 30 ml 06/04/20 14:40 Milk Of Magnesia 30 Ml Oral.Susp PO DAILY PRN Constipation Olanzapine 5 mg 06/04/20 15:29 06/16/20 22:45 Olanzapine 5 Mg Tablet PO 5 mg Q4H PRN Administration agitation,leona,psychosis Olanzapine 5 mg 06/16/20 21:00 06/16/20 20:57 Olanzapine 5 Mg Tablet PO 5 mg BEDTIME JUAN DANIEL Administration Prazosin HCl 1 mg 06/16/20 21:00 06/16/20 20:57 Prazosin Hcl 1 Mg Capsule PO 1 mg BEDTIME JUAN DANIEL Administration Protocol Allergies Allergies Allergy/AdvReac Type Severity Reaction Status Date / Time Penicillins Allergy Unknown Unknown Verified 06/04/20 14:31 trazodone Allergy Unknown Unknown Verified 06/04/20 14:30 Assessment & Plan Assessment & Plan (1) Bipolar 1 disorder: Status: Acute Code(s): F31.9 - Bipolar disorder, unspecified Assessment and Plan: -Increase Olanzapine to 10 mg at HS- pt will taper over time -Increase Prazosin to 2 mg Hs (2) PTSD (post-traumatic stress disorder): Status: Acute Code(s): F43.10 - Post-traumatic stress disorder, unspecified Greater than 50% of the session was spent on counseling and/or coordination of care Reason for contiued inpatient stay Substantial Risk for: inability to function and rapid decompensation
[2020-06-17 18:00] VITALS: BP 147/88; PULSE 91; TEMP 37.1
[2020-06-17 22:18] VITALS: BP 156/81; PULSE 103
[2020-06-17 22:36] VITALS: BP 145/80; PULSE 70
[2020-06-17] MEDS: Prazosin HCL 1 MG CAPSULE 2 MG PO (22:36)
[2020-06-17] MEDS: OLANZapine 10 MG TABLET PO (22:37)
[2020-06-17] MEDS: Hydrocortisone 1 % Cream 28.35 GM TUBE 1 APPL TOPICAL (22:38)
[2020-06-18 05:45] VITALS: BP 111/59; PULSE 89; RESP 16; TEMP 37.1; O2SAT 96
[2020-06-18 07:58] LABS: MANUAL DIFF FLAG NO
[2020-06-18 08:01] LABS: Basophils Absolute Auto 0.1 X10*3/uL (0.0-0.2); Basophils Percent Auto 0.7 % (0-2); Eosinophils Absolute Auto 0.1 X10*3/uL (0.0-0.4); Hematocrit 42.2 % (42-52); Hemoglobin 13.6 g/dl (14.0-18.0); Imm Gran Abs Auto 0.05 X10*3/uL (0.00-0.03); Imm Gran Pct Auto 0.7 % (0.0-0.4); Lymphocytes Absolute Auto 1.6 X10*3/uL (1.2-4.9); Lymphocytes Percent Auto 23.2 % (20-40); Mean Corpuscular HGB Conc 32.2 g/dl (31.0-36.0); Mean Corpuscular Hemoglobin 30.5 pg (27.0-33.0); Mean Corpuscular Volume 94.6 fL (80-98); Mean Platelet Volume 10.7 fL (9.4-12.4); Monocytes Absolute Auto 0.7 X10*3/uL (0.1-1.2); Monocytes Percent Auto 10.2 % (2-11); Neutrophils Absolute Auto 4.4 X10*3/uL (2.0-8.3); Neutrophils Percent Auto 63.2 % (45-73); Platelet Count 191 X10*3/uL (160-400); Red Blood Count 4.46 X10*6/uL (4.60-5.80)
[2020-06-18 08:16] VITALS: BP 122/66; PULSE 87
[2020-06-18 08:19] LABS: Lithium 0.38 mmol/L (0.60-1.20)
[2020-06-18 08:28] LABS: Alanine Aminotransferase 32 U/L (0-40); Albumin Level 3.6 g/dL (3.5-5.0); Alkaline Phosphatase 44 U/L (39-117); Anion Gap 14 (12-20); Aspartate Amino Transferase 13 U/L (5-37); Bilirubin Total 0.3 mg/dL (0.0-1.0); Blood Urea Nitrogen 12 mg/dL (9-16); Calcium 8.9 mg/dL (8.4-10.2); Carbon Dioxide 24 mmol/L (22-29); Chloride 106 mmol/L (96-108); Creatinine Clr Calc Pharmacy 85.7; Estimated Glomerular Filt Rate > 60; Glucose Random 182 mg/dL (60-115); Potassium 4.2 mmol/L (3.3-5.1); Sodium 140 mmol/L (135-145); Total Protein 6.2 g/dL (6.5-8.0)
[2020-06-18 08:34] VITALS: BP 122/66
[2020-06-18] MEDS: Hydrocortisone 1 % Cream 28.35 GM TUBE 1 APPL TOPICAL (08:34)
[2020-06-18] MEDS: Cyanocobalamin (Vitamin B-12) 1,000 MCG TABLET 1000 MCG PO (08:34)
[2020-06-18] MEDS: Lithium Carbonate 300 MG CAPSULE PO (08:34)
[2020-06-18] MEDS: amLODIPine Besylate 5 MG TABLET PO (08:34)
[2020-06-18 08:37] LABS: Valproate 24.8 mcg/mL (50.0-100.0)
--- NOTE | 2020-06-18 10:17 | PC.NURSE ---
PT REPORTS AWARENESS AND READINESS FOR DISCHARGE. PT HAS BEEN EATING AND SLEEPING WELL. PT REPORTS A DECREASE IN ANXIETY AND DEPRESSION. PT DENIES ANY AUDITORY OR VISUAL HALLUCINATIONS AT THIS TIME. PT DENIES HVAING ANY SUICIDAL OR HOMICIDAL IDEATIONS AT THIS TIME. PT HAS BEEN IN BEHAVIORAL CONTROL ON THE UNIT. PT HAS BEEN ISOLATIVE TO HIS ROOM MOST OF THE TIME BUT IS SOCIAL WITH HIS ROOMMATE. PT IS MED COMPLIANT. PT HAS BEEN EDUCATED O HIS MEDICATIONS. PT HAS APPOINTMENTS SCHEDULED. PTS PAPERWORK WILL BE FAXED TO PCP PER PROTOCOL. PT HAS A STRONG SUPPORT SATYA. HE HAS A PLAN TO DO PARTIAL AFTER DISCHARGE.
--- NOTE | 2020-06-18 12:22 | PM.PSYDC ---
DS: Providers Provider Date of Service: 07/13/20 Date of admission: 06/04/20 14:06 Primary care physician: Harpreet Jesus [phone] Consults: 06/04/20 16:50 Consult to Hospitalist Routine Consulting Provider: George Schofield Reason For Exam: Medical Clearance-pt transferred from [facility] ER 06/06/20 10:00 Consult to Neurology Routine Consulting Provider: [facility] Reason for consultation: R/O Seizure disorder- hx CVA age 1 and seizure,bipolar d/o Has provider been notified: No DS: Diagnosis Discharge Diagnosis (1) Bipolar 1 disorder: Status: Acute Problem details: 55 yo male, transferred from [facility] ER. Hx of PTSD, Bipolar Disorder, Type I. Pt living with partner who reports psychotic decompensation ~7 days prior to admission with insomnia-since Mar 2020, anorexia, psychosis, disorientation. Pt has a hx of seizure, CVA reported when pt was age 1. Possible precipitants: Seasonal changes, Medication changes, specifically with recent Seroquel titration, provider changes. (2) PTSD (post-traumatic stress disorder): Status: Acute Problem details: Pt was in [place] retirement [phone]. Upon release, he spent ~4 weeks in pt for treatment. He continues with sequalae. DS: Medications Discharge Medications Home Medications: Previous Rx's Medication Instructions Recorded amlodipine 5 mg PO DAILY #30 tab 06/18/20 cariprazine [Vraylar] 3 mg PO DAILY #30 cap 06/18/20 cyanocobalamin (vitamin B-12) 1,000 mcg PO DAILY #30 tab 06/18/20 [Vitamin B-12] divalproex 1,000 mg PO BEDTIME #60 tab 06/18/20 hydrocortisone 1 appl TOPICAL BID #1 g 06/18/20 hydroxyzine HCl 25 mg PO BEDTIME PRN #30 tab 06/18/20 lithium carbonate 300 mg PO BID #60 cap 06/18/20 lorazepam 1 mg PO BID PRN #60 tab 06/18/20 olanzapine 5 mg PO .prn #90 tab 06/18/20 prazosin 2 mg PO BEDTIME #30 cap 06/18/20 Discharge Plan Discharge Patient Disposition: Home, Self-Care Discharge Diagnosis: Bipolar Disorder, Type I PTSD Referrals: Therapist: Tanya Valenzuela ([facility]) [Other] - 04/02/21 1:00 pm Psych Prescriber: Joellen Cruz ([facility]) [Other] - 07/16/20 11:20 am Psych Prescriber: Joellen Cruz ([facility]) [Other] - 08/12/20 11:20 am PHP: Susie Moseley ([facility]) [Other] - 06/18/20 1:00 pm HARPREET JESUS [Other] - 06/19/20 9:00 am (IN OFFICE) Discharge Medications: New cyanocobalamin (vitamin B-12) [Vitamin B-12] 1,000 mcg Tablet 1,000 mcg PO DAILY Qty: 30 RF: 0 amlodipine 5 mg Tablet 5 mg PO DAILY Qty: 30 RF: 1 hydrocortisone 1 % Cream 1 appl topical BID Qty: 1 RF: 0 Discontinued quetiapine 100 MG 100 mg PO DAILY RF: 0 lithium carbonate 300 mg capsule 300 mg PO BID RF: 0 No Action prazosin 1 mg Capsule 2 mg PO BEDTIME Qty: 30 RF: 0 lithium carbonate 450 mg tablet extended release 900 mg PO BEDTIME Qty: 28 RF: 1 diphenhydramine HCl [Benadryl] 25 mg capsule 50 mg PO BEDTIME 14 Days Qty: 28 RF: 1 hydroxyzine HCl 25 mg Tablet 25 mg PO BEDTIME PRN (Reason: Anxiety) Qty: 30 RF: 0 lorazepam 1 mg tablet 1 mg PO BID PRN (Reason: anxiety) Qty: 60 RF: 0 Vraylar 3 mg Capsule 3 mg PO DAILY Qty: 30 RF: 0 Discharge Orders: Discharge Order (Routine); Ordered 06/18/20 Ordered By: Debbie Villalpando Diet: advance to usual diet Activity on Discharge: As tolerated Stand Alone Forms: Patient Portal Discharge page Care Plan Goals: Stability of mood Health Concerns: PTSD Bipolar Disorder Plan of Treatment: Follow up with all appointments Take medications as directed. Call or return if symptoms increase Assessment: Pt will attend Partial Hospital Program. He has stabilized and returned to baseline, will go home with his partner, Ayanna, who will be with him in their home. Patient Instructions: Prazosin (By mouth), Lorazepam (By mouth), [place] (By mouth), Hydroxyzine (By mouth), Amlodipine (By mouth), Olanzapine (By mouth), Divalproex (By mouth), Cariprazine (By mouth) Discharge Date/Time: 06/18/20 11:05 Mental Status Exam Mental Status Exam Patient Appearance: Appropriate Patient Orientation: Person, Place, Time and Situation Level of Consciousness: Awake Patient Behavior: Appropriate and Talkative Mood Description: Calm Affect Description: Flat Patient Cognition Impaired: No Ability to Follow Directions: Good Speech Pattern: Spontaneous Speech Memory Description: Episodic Impaired Hallucinations: None Delusions: Not Present Thought Process: Goal Oriented Thought Content: positive for Goal Oriented Depressive Symptoms: Thoughts of /Suicide (denied SI plan or intent) Judgement: Good Data Data Completed and Pending Completed studies during hospitalization [Text1]: 06/13/20 06/13/20 06/13/20 09:09 09:09 09:09 WBC 7.5 RBC 4.76 Hgb 14.6 Hct 45.2 MCV 95.0 MCH 30.7 MCHC 32.3 RDW 13.0 Plt Count 215 MPV 10.6 Immature Gran % (Auto) 0.7 H Neut % (Auto) 63.1 Lymph % (Auto) 23.0 [place] % (Auto) 9.8 Eos % (Auto) 2.7 Baso % (Auto) 0.7 Lymph # (Auto) 1.7 [place] # (Auto) 0.7 Eos # (Auto) 0.2 Baso # (Auto) 0.1 Abs Immat Gran (auto) 0.05 H Absolute Neuts (auto) 4.7 Absolute Nucleated RBC 0.000 Nucleated RBC % (auto) 0.0 Sodium 141 Potassium 4.1 Chloride 105 Carbon Dioxide 27 Anion Gap 13 BUN 13 Creatinine 0.97 Estim Creat Clear Calc 84.0 Estimated GFR > 60 Random Glucose 157 H Calcium 9.1 Total Bilirubin 0.3 AST 14 D ALT 28 Alkaline Phosphatase 32 L Total Protein 6.4 L Albumin 3.8 TSH 1.34 Valproic Acid 71.3 [place] 0.45 L 06/18/20 06/18/20 06/18/20 07:46 07:46 07:46 WBC 7.0 RBC 4.46 L Hgb 13.6 L Hct 42.2 MCV 94.6 MCH 30.5 MCHC 32.2 RDW 13.0 Plt Count 191 MPV 10.7 Immature Gran % (Auto) 0.7 H Neut % (Auto) 63.2 Lymph % (Auto) 23.2 [place] % (Auto) 10.2 Eos % (Auto) 2.0 Baso % (Auto) 0.7 Lymph # (Auto) 1.6 [place] # (Auto) 0.7 Eos # (Auto) 0.1 Baso # (Auto) 0.1 Abs Immat Gran (auto) 0.05 H Absolute Neuts (auto) 4.4 Absolute Nucleated RBC 0.000 Nucleated RBC % (auto) 0.0 Sodium 140 Potassium 4.2 Chloride 106 Carbon Dioxide 24 Anion Gap 14 BUN 12 Creatinine 0.95 Estim Creat Clear Calc 85.7 Estimated GFR > 60 Random Glucose 182 H Calcium 8.9 Total Bilirubin 0.3 AST 13 ALT 32 Alkaline Phosphatase 44 D Total Protein 6.2 L Albumin 3.6 TSH Valproic Acid 24.8 L [place] 0.38 L DS: Summary Hospital Course Hospital Course: Pt was admitted on a conditional voluntary. He presented with severe psychosis without violence however with rapid movements, posturing and bizarre behaviors. Pt was cooperative with treatment and worked closely with the nursing and social service teams and slowly recompensated to baseline. Partner was able to visit and was able to assess his progress and offer feedback to the team. Pt was seen by [facility] hospitalist services on admission as he was transferred from [facility]. Neurology met with pt as well as he has a history of seizure and reported CVA at age 1. Medication interventions included discontinuation of Seroquel as it appears it caused an increase in psychosis. Addition of Depakote, titration of [place] (with caution as pt has a hx of toxicity). Olanzapine was added to assist pt in stabilizing (he has a history of successful use however with 100lb weight gain). Once stabilized, Vraylar was initiated with a goal of cross titration to be continued in partial hospital program and as an out patient. Prazosin was initiated for nightmares associated with PTSD. Pt was discharged to begin partial hospital program with [facility]. Time spent discussing smoking cessation with patient: 3 to 10 minutes Status at Discharge Cognitive/behavioral status at discharge: alert, oriented, non suicidal, non homicial, no sx of psychosis, affect and mood are euthymic, flat. Functional status at discharge: independent ambulation Overall status at discharge: patient is back to baseline Time Spent with Patient Time attestation: Total time spent providing and/or coordinating discharge services: 40 Time spent: Greater than 30 minutes
== END 2020-06-18 11:05 | disposition home or self-care (01) | DRG 885 ==
PROVIDERS: Social Worker; Admitting Provider Psychiatry & Neurology Psychiatry; Visit Provider Clinical Nurse Specialist Psychiatric/Mental Health, Adult
DX: F31.9 Bipolar disorder, unspecified (principal); F43.10 Post-traumatic stress disorder, unspecified; Z88.0 Allergy status to penicillin; Z79.899 Other long term (current) drug therapy
CPT/HCPCS: 36415; 80048; 80053; 80061; 80164; 80178; 80307; 82306; 82607; 82746; 83036; 84439; 84443; 85025; 93005; 95816

== ENCOUNTER 2020-06-26 14:57 | Outpatient (REF) | payer MEDICARE, MEDICAID, SELFPAY ==
[2020-06-26 15:49] LABS: MANUAL DIFF FLAG NO
[2020-06-26 15:57] LABS: Basophils Absolute Auto 0.1 X10*3/uL (0.0-0.2); Basophils Percent Auto 0.8 % (0-2); Eosinophils Absolute Auto 0.1 X10*3/uL (0.0-0.4); Imm Gran Abs Auto 0.05 X10*3/uL (0.00-0.03); Imm Gran Pct Auto 0.8 % (0.0-0.4); Lymphocytes Absolute Auto 1.4 X10*3/uL (1.2-4.9); Lymphocytes Percent Auto 22.1 % (20-40); Mean Corpuscular HGB Conc 31.8 g/dl (31.0-36.0); Mean Corpuscular Hemoglobin 30.3 pg (27.0-33.0); Mean Corpuscular Volume 95.2 fL (80-98); Mean Platelet Volume 10.8 fL (9.4-12.4); Monocytes Absolute Auto 0.6 X10*3/uL (0.1-1.2); Monocytes Percent Auto 8.7 % (2-11); Neutrophils Absolute Auto 4.3 X10*3/uL (2.0-8.3); Neutrophils Percent Auto 65.6 % (45-73); Platelet Count 222 X10*3/uL (160-400); Red Blood Count 4.62 X10*6/uL (4.60-5.80); Red Cell Distribution Width 13.4 % (11.0-16.0); White Blood Count 6.5 X10*3/uL (4.8-10.8)
[2020-06-26 16:16] LABS: Lithium 0.67 mmol/L (0.60-1.20)
[2020-06-26 16:21] LABS: Alanine Aminotransferase 23 U/L (0-40); Alkaline Phosphatase 36 U/L (39-117); Anion Gap 13 (12-20); Aspartate Amino Transferase 12 U/L (5-37); Bilirubin Direct < 0.2 mg/dL (0.0-0.5); Bilirubin Total 0.3 mg/dL (0.0-1.0); Blood Urea Nitrogen 12 mg/dL (9-16); Calcium 9.1 mg/dL (8.4-10.2); Carbon Dioxide 29 mmol/L (22-29); Chloride 105 mmol/L (96-108); Estimated Glomerular Filt Rate > 60; Glucose Random 185 mg/dL (60-115); Potassium 4.6 mmol/L (3.3-5.1); Sodium 142 mmol/L (135-145); Total Protein 6.8 g/dL (6.5-8.0)
[2020-06-26 16:48] LABS: Valproate 76.7 mcg/mL (50.0-100.0)
[2020-06-27 07:51] LABS: Prolactin 7.3 ng/mL (2.0-18.0)
== END 2020-06-26 14:58 | disposition home or self-care (01) ==
LOC: HO.LAB 14:57
PROVIDERS: PCP Nurse Practitioner Family; Visit Provider Psychiatry & Neurology Psychiatry
DX: F31.9 Bipolar disorder, unspecified (principal); Z79.899 Other long term (current) drug therapy
CPT/HCPCS: 36415; 80048; 80076; 80164; 80178; 84146; 85025

== ENCOUNTER 2020-07-10 09:30 | Outpatient (RCR) | payer MEDICARE, MEDICAID, SELFPAY ==
[2020-06-19 12:02] VITALS: BMI 25.1
--- NOTE | 2020-06-19 12:19 | PC.ADMIT ---
Patient is a 55 year old male who was referred by [facility] inpatient psychiatric unit where patient was admitted d/t increase in mood instability. Patient has a dx of Bipolar I d/o with psychotic features and reportedly had some medication changes and changes with providers which contributed to his behavior. Patient reports he was also using marijuana cubes and thinks this contributed to his presentation as well. Patient initially was taken to [facility] by his partner of 1.5 years. He presented as disoriented, disorganized, with psychotic sxs, had insomnia and anorexia with symptoms starting a week prior to hospitalization. Patient currently lives with his partner of 1.5 years, he is from his and is seeking a divorce from her. Patient presents with depressed mood and anxious affect. Denied SI, HI, AH, VH, or paranoid thoughts. He gave verbal permission to email him a copy of his safety plan. Patient medications reconciled with patient and d/c medication list. patient reports taking medications as prescribed however he reports he was not able to get his prn Olanzapine from the pharmacy. Dr Ruano is aware.
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
--- NOTE | 2020-06-19 13:50 | PC.NURSE ---
Case opened in treatment team
--- NOTE | 2020-06-25 13:17 | HO.PHPPROGNO ---
Subjective Subjective Date of Service: 06/25/20 Reason For Visit: depression Interim History: The patient reported improvement on his mood and sleep with the changes done on the last visit. His only complaint is sexual side effects, most likely delayed orgasm. I reviewed his medications and he is on Vraylar that could increase Prolactine. Since he is having bloodwork to check [place] and Depakote, we will order Prolactin level. Medication Compliance: Yes Side effects from medications: Yes (Described on HPI) Review of Systems Review of Systems Yes all other systems are reviewed and are negative Mental Status Exam Mental Status Exam Patient Appearance: Well Grooomed Patient Orientation: Person, Place, Time and Situation Level of Consciousness: Awake and Appropriate Patient Behavior: Appropriate Mood Description: Calm Affect Description: Calm and Appropriate Patient Cognition Impaired: No Ability to Follow Directions: Good Speech Pattern: Clear Hallucinations: None Delusions: Not Present Thought Process: Intact Thought Content: positive for Intact Judgement: Fair Diagnostics Vital Signs (24Hr): Body Mass Index 25.1 Assessment & Plan Assessment & Plan (1) Bipolar 1 disorder: Status: Acute Code(s): F31.9 - Bipolar disorder, unspecified Assessment and Plan: Keep same treatment Bloodwork with cbc, tsh, lft, lipids, prolactin level Certification I certify that partial hospital treatment is medically necessary due to the symptoms and problems resulting from the patient's mental illness and the failure to treat the patient at the partial hospital level of care would likely result in the patient requiring inpatient psychiatric care which could not be prevented at a less intensive level of care. Greater than 50% of the session was spent on counseling and/or coordination of care Discharge Plan Discharge Attending provider: Real Hendrix Medications: New lithium carbonate 450 mg tablet extended release 900 mg PO BEDTIME Qty: 28 RF: 0 diphenhydramine HCl 25 mg tablet 25 mg PO BEDTIME Qty: 14 RF: 0 Continued prazosin 1 mg Capsule 2 mg PO BEDTIME Qty: 30 RF: 0 divalproex 500 mg Tablet Extended Release 24 Hr 1,000 mg PO BEDTIME Qty: 60 RF: 0 hydroxyzine HCl 25 mg Tablet 25 mg PO BEDTIME PRN (Reason: Anxiety) Qty: 30 RF: 0 lorazepam 1 mg tablet 1 mg PO BID PRN (Reason: anxiety) Qty: 60 RF: 0 Vraylar 3 mg Capsule 3 mg PO DAILY Qty: 30 RF: 0 Discontinued lithium carbonate 300 mg Capsule 300 mg PO BID Qty: 60 RF: 0 olanzapine 5 mg tablet 5 mg PO .prn Qty: 90 RF: 0 No Action cyanocobalamin (vitamin B-12) [Vitamin B-12] 1,000 mcg Tablet 1,000 mcg PO DAILY Qty: 30 RF: 0 amlodipine 5 mg Tablet 5 mg PO DAILY Qty: 30 RF: 1 hydrocortisone 1 % Cream 1 appl topical BID Qty: 1 RF: 0 Other Ambulatory Orders: Basic Metabolic Panel (Routine) Timeframe: 2 Days Facility: [facility] - Location: Laboratory Ordered By: Bob Ruano Complete Blood Count Auto Diff (Routine) Timeframe: 2 Days Facility: [facility] - Location: Laboratory Ordered By: Bob Ruano [place] (Routine) Timeframe: 2 Days Facility: [facility] - Location: Laboratory Ordered By: Bob Ruano Liver Panel (Routine) Timeframe: 2 Days Facility: [facility] - Location: Laboratory Ordered By: Bob Ruano Prolactin (Routine) Timeframe: 2 Days Facility: [facility] - Location: Laboratory Ordered By: Bob Ruano Valproate (Routine) Timeframe: 2 Days Facility: [facility] - Location: Laboratory Ordered By: Bob Ruano Telehealth Telehealth Location of provider rendering services: practice address Location of patient: address on file Patient Identification confirmed using: Name, : Yes Telehealth method: video Patient verbally consented to treatment: Yes Patient verbally consented to billing insurance company: Yes Patient informed of any privacy concerns related to visit: No Time spent with patient (mins): 15
--- NOTE | 2020-07-01 12:47 | HO.PHPPROGNO ---
Subjective Subjective Date of Service: 07/01/20 Reason For Visit: depression Interim History: The patient reported ED in correlation with Depakote. His levels are on therapeutic level. We discussed options and he agreed to hold Depakote and add more Benadryl at hs for sleep. New scripts were issued. He is fully aware of the risk of decompensation when we stop Depakote. Medication Compliance: Yes Side effects from medications: Yes (ED as per patient and patient's partner started with Depakote) Attending Groups: Yes Review of Systems Genitourinary: Reports as per [facility] Mental Status Exam Mental Status Exam Patient Appearance: Well Grooomed and Appropriate Patient Orientation: Person, Place, Time and Situation Level of Consciousness: Awake and Appropriate Patient Behavior: Appropriate Mood Description: Calm Affect Description: Calm and Appropriate Patient Cognition Impaired: No Ability to Follow Directions: Good Speech Pattern: Clear Hallucinations: None Delusions: Not Present Thought Process: Goal Oriented Thought Content: positive for Intact Judgement: Fair Diagnostics Vital Signs (24Hr): Body Mass Index 25.1 Labs Labs: Lith and VALP on therapeutic levels. Prolactin normal Assessment & Plan Assessment & Plan (1) Bipolar 1 disorder: Status: Acute Code(s): F31.9 - Bipolar disorder, unspecified Assessment and Plan: 1. Hold Depakote. 2. Increase Benadryl up to 50 mg. 3. REst the same Certification I certify that partial hospital treatment is medically necessary due to the symptoms and problems resulting from the patient's mental illness and the failure to treat the patient at the partial hospital level of care would likely result in the patient requiring inpatient psychiatric care which could not be prevented at a less intensive level of care. Greater than 50% of the session was spent on counseling and/or coordination of care Discharge Plan Discharge Attending provider: Real Hendrix Medications: New diphenhydramine HCl [Benadryl] 25 mg capsule 50 mg PO BEDTIME 14 Days Qty: 28 RF: 0 Continued cyanocobalamin (vitamin B-12) [Vitamin B-12] 1,000 mcg Tablet 1,000 mcg PO DAILY Qty: 30 RF: 0 hydrocortisone 1 % Cream 1 appl topical BID Qty: 1 RF: 0 prazosin 1 mg Capsule 2 mg PO BEDTIME Qty: 30 RF: 0 lithium carbonate 450 mg tablet extended release 900 mg PO BEDTIME Qty: 28 RF: 0 hydroxyzine HCl 25 mg Tablet 25 mg PO BEDTIME PRN (Reason: Anxiety) Qty: 30 RF: 0 lorazepam 1 mg tablet 1 mg PO BID PRN (Reason: anxiety) Qty: 60 RF: 0 Vraylar 3 mg Capsule 3 mg PO DAILY Qty: 30 RF: 0 Discontinued lithium carbonate 300 mg Capsule 300 mg PO BID Qty: 60 RF: 0 divalproex 500 mg Tablet Extended Release 24 Hr 1,000 mg PO BEDTIME Qty: 60 RF: 0 olanzapine 5 mg tablet 5 mg PO .prn Qty: 90 RF: 0 No Action amlodipine 5 mg Tablet 5 mg PO DAILY Qty: 30 RF: 1 Telehealth Telehealth Location of provider rendering services: practice address Location of patient: address on file Patient Identification confirmed using: Name, : Yes Telehealth method: video Patient verbally consented to treatment: Yes Patient verbally consented to billing insurance company: Yes Patient informed of any privacy concerns related to visit: No Time spent with patient (mins): 15
--- NOTE | 2020-07-10 10:43 | PC.NURSE ---
Reviewed patient d/c medications with patient. Medication Education provided. D/C medication list faxed to patient providers.
--- NOTE | 2020-07-10 13:44 | HO.PHPPROGNO ---
Subjective Subjective Date of Service: 07/10/20 Reason For Visit: depression Interim History: The patient reported that he is doing well, no evidence of manic symptoms since we discontinued Depakote. ED also probably related to BP medications. His sleep has improved with Benadryl and his appetite is now normal. No safety concerns. Medication Compliance: Yes Side effects from medications: No Attending Groups: Yes Review of Systems Review of Systems Yes all other systems are reviewed and are negative Mental Status Exam Mental Status Exam Patient Appearance: Well Grooomed Patient Orientation: Person, Place, Time and Situation Level of Consciousness: Awake and Appropriate Patient Behavior: Appropriate Mood Description: Calm Affect Description: Calm Patient Cognition Impaired: No Ability to Follow Directions: Good Speech Pattern: Clear Memory Description: Intact Hallucinations: None Delusions: Not Present Thought Process: Goal Oriented Thought Content: positive for Intact Judgement: Fair Diagnostics Vital Signs (24Hr): Body Mass Index 25.1 Assessment & Plan Assessment & Plan (1) Bipolar 1 disorder: Status: Acute Code(s): F31.9 - Bipolar disorder, unspecified Assessment and Plan: The patient is a middle age male with Bipolar disorder, with several medication trials, referred for continuation of treatment, on 3 mood stabilizers. He has been stable, euthymic but he reported ED in correlation with Depakote. Eventually, we kept only Vraylar 3 mg and [place] with fair mood stabilization. Plan: Keep [place] and Vraylar. F/U with regular prescriber. Certification I certify that partial hospital treatment is medically necessary due to the symptoms and problems resulting from the patient's mental illness and the failure to treat the patient at the partial hospital level of care would likely result in the patient requiring inpatient psychiatric care which could not be prevented at a less intensive level of care. Greater than 50% of the session was spent on counseling and/or coordination of care Discharge Plan Discharge Attending provider: Real Hendrix Medications: New diphenhydramine HCl [Benadryl] 25 mg capsule 50 mg PO BEDTIME 14 Days Qty: 28 RF: 0 Continued cyanocobalamin (vitamin B-12) [Vitamin B-12] 1,000 mcg Tablet 1,000 mcg PO DAILY Qty: 30 RF: 0 hydrocortisone 1 % Cream 1 appl topical BID Qty: 1 RF: 0 prazosin 1 mg Capsule 2 mg PO BEDTIME Qty: 30 RF: 0 lithium carbonate 450 mg tablet extended release 900 mg PO BEDTIME Qty: 28 RF: 0 hydroxyzine HCl 25 mg Tablet 25 mg PO BEDTIME PRN (Reason: Anxiety) Qty: 30 RF: 0 lorazepam 1 mg tablet 1 mg PO BID PRN (Reason: anxiety) Qty: 60 RF: 0 Vraylar 3 mg Capsule 3 mg PO DAILY Qty: 30 RF: 0 Discontinued lithium carbonate 300 mg Capsule 300 mg PO BID Qty: 60 RF: 0 divalproex 500 mg Tablet Extended Release 24 Hr 1,000 mg PO BEDTIME Qty: 60 RF: 0 olanzapine 5 mg tablet 5 mg PO .prn Qty: 90 RF: 0 No Action amlodipine 5 mg Tablet 5 mg PO DAILY Qty: 30 RF: 1 Telehealth Telehealth Location of provider rendering services: practice address Location of patient: address on file Patient Identification confirmed using: Name, : No Telehealth method: video Patient verbally consented to treatment: Yes Patient verbally consented to billing insurance company: Yes Patient informed of any privacy concerns related to visit: No Time spent with patient (mins): 15
== END 2020-07-11 08:27 | disposition home or self-care (01) ==
LOC: HO.PHPA 09:30
PROVIDERS: Visit Provider Psychiatry & Neurology Psychiatry
DX: F31.9 Bipolar disorder, unspecified (principal); Z79.899 Other long term (current) drug therapy
CPT/HCPCS: 90791; 90792; 90853

== ENCOUNTER 2020-07-28 11:43 | Outpatient (REF) | payer MEDICARE, MEDICAID, SELFPAY ==
[2020-07-28 13:33] LABS: MANUAL DIFF FLAG NO
[2020-07-28 13:52] LABS: Basophils Absolute Auto 0.1 X10*3/uL (0.0-0.2); Basophils Percent Auto 0.8 % (0-2); Eosinophils Absolute Auto 0.2 X10*3/uL (0.0-0.4); Eosinophils Percent Auto 2.6 % (0-4); Hematocrit 46.1 % (42-52); Hemoglobin 14.8 g/dl (14.0-18.0); Imm Gran Abs Auto 0.02 X10*3/uL (0.00-0.03); Imm Gran Pct Auto 0.3 % (0.0-0.4); Lymphocytes Absolute Auto 1.4 X10*3/uL (1.2-4.9); Lymphocytes Percent Auto 18.2 % (20-40); Mean Corpuscular HGB Conc 32.1 g/dl (31.0-36.0); Mean Corpuscular Hemoglobin 30.5 pg (27.0-33.0); Mean Corpuscular Volume 94.9 fL (80-98); Monocytes Absolute Auto 0.5 X10*3/uL (0.1-1.2); Monocytes Percent Auto 6.7 % (2-11); Neutrophils Absolute Auto 5.5 X10*3/uL (2.0-8.3); Neutrophils Percent Auto 71.4 % (45-73); Platelet Count 211 X10*3/uL (160-400); Red Blood Count 4.86 X10*6/uL (4.60-5.80); Red Cell Distribution Width 13.2 % (11.0-16.0); White Blood Count 7.7 X10*3/uL (4.8-10.8)
[2020-07-28 13:56] LABS: Cholesterol 149 mg/dL; HDL Cholesterol 51 mg/dL; LDL Cholesterol Calculated 84 mg/dl; Triglycerides 72 mg/dL
== END 2020-07-28 11:44 | disposition home or self-care (01) ==
LOC: HO.LAB 11:43
PROVIDERS: Visit Provider Registered Nurse
DX: Z79.899 Other long term (current) drug therapy (principal)
CPT/HCPCS: 36415; 80061; 85025

== ENCOUNTER 2020-08-28 10:43 | Outpatient (REF) | payer MEDICARE, MEDICAID, SELFPAY ==
[2020-08-28 12:26] LABS: Lithium 1.08 mmol/L (0.60-1.20)
[2020-08-28 12:27] LABS: Anion Gap 10 (12-20); Blood Urea Nitrogen 16 mg/dL (9-16); Calcium 9.8 mg/dL (8.4-10.2); Carbon Dioxide 25 mmol/L (22-29); Chloride 107 mmol/L (96-108); Estimated Glomerular Filt Rate 60; Glucose Random 132 mg/dL (60-115); Sodium 138 mmol/L (135-145)
[2020-08-28 12:31] LABS: TSH reflex Free T4 2.92 uIU/mL (0.32-4.0)
== END 2020-08-28 10:44 | disposition home or self-care (01) ==
LOC: HO.LABR 10:43
PROVIDERS: PCP Nurse Practitioner Family; Visit Provider Registered Nurse
DX: Z79.899 Other long term (current) drug therapy (principal)
CPT/HCPCS: 36415; 80048; 80178; 84443

== ENCOUNTER 2020-09-11 10:45 | Outpatient (REF) | payer MEDICARE, MEDICAID, SELFPAY ==
[2020-09-11 11:31] LABS: Lithium 1.06 mmol/L (0.60-1.20)
== END 2020-09-11 10:46 | disposition home or self-care (01) ==
LOC: HO.LAB 10:45
PROVIDERS: PCP Nurse Practitioner Family; Visit Provider Registered Nurse
DX: Z79.899 Other long term (current) drug therapy (principal)
CPT/HCPCS: 36415; 80178

== ENCOUNTER 2020-12-24 10:11 | Outpatient (REF) | payer MEDICARE, MEDICAID, SELFPAY ==
[2020-12-24 11:44] LABS: Lithium 0.56 mmol/L (0.60-1.20)
[2020-12-24 11:46] LABS: Anion Gap 11 (12-20); Blood Urea Nitrogen 10 mg/dL (9-16); Calcium 9.1 mg/dL (8.4-10.2); Carbon Dioxide 26 mmol/L (22-29); Chloride 107 mmol/L (96-108); Estimated Glomerular Filt Rate > 60; Glucose Random 140 mg/dL (60-115); Potassium 4.5 mmol/L (3.3-5.1); Sodium 139 mmol/L (135-145)
[2020-12-24 12:10] LABS: TSH reflex Free T4 1.08 uIU/mL (0.32-4.0)
== END 2020-12-24 10:12 | disposition home or self-care (01) ==
LOC: HO.LABR 10:11
PROVIDERS: Visit Provider Registered Nurse
DX: Z79.899 Other long term (current) drug therapy (principal)
CPT/HCPCS: 36415; 80048; 80178; 84443

== ENCOUNTER 2021-05-07 12:32 | Outpatient (REF) | payer MEDICARE, MEDICAID, SELFPAY ==
[2021-05-07 13:18] LABS: Lithium 0.38 mmol/L (0.60-1.20)
[2021-05-07 13:23] LABS: Anion Gap 9 (12-20); Blood Urea Nitrogen 12 mg/dL (9-16); Calcium 9.8 mg/dL (8.4-10.2); Carbon Dioxide 28 mmol/L (22-29); Chloride 106 mmol/L (96-108); Estimated Glomerular Filt Rate > 60; Glucose Random 137 mg/dL (60-115); Potassium 4.3 mmol/L (3.3-5.1); Sodium 139 mmol/L (135-145)
[2021-05-07 13:42] LABS: TSH reflex Free T4 0.64 uIU/mL (0.32-4.0)
== END 2021-05-07 12:33 | disposition home or self-care (01) ==
LOC: HO.LABR 12:32
PROVIDERS: PCP Nurse Practitioner Family; Visit Provider Registered Nurse
DX: Z79.899 Other long term (current) drug therapy (principal)
CPT/HCPCS: 36415; 80048; 80178; 84443

== ENCOUNTER 2021-08-14 11:56 | Outpatient (REF) | payer OTHER, SELFPAY ==
[2021-08-14 13:10] LABS: Anion Gap 11 (12-20); Blood Urea Nitrogen 14 mg/dL (9-16); Calcium 10.1 mg/dL (8.4-10.2); Carbon Dioxide 26 mmol/L (22-29); Chloride 106 mmol/L (96-108); Estimated Glomerular Filt Rate > 60; Glucose Random 113 mg/dL (60-115); Potassium 4.3 mmol/L (3.3-5.1); Sodium 139 mmol/L (135-145)
[2021-08-14 13:12] LABS: Lithium 0.47 mmol/L (0.60-1.20)
[2021-08-14 13:34] LABS: TSH reflex Free T4 0.84 uIU/mL (0.32-4.0)
== END 2021-08-14 11:57 | disposition home or self-care (01) ==
LOC: HO.LABR 11:56
PROVIDERS: PCP Nurse Practitioner Adult Health; Visit Provider Registered Nurse
DX: Z79.899 Other long term (current) drug therapy (principal)
CPT/HCPCS: 36415; 80048; 80178; 84443

== ENCOUNTER 2022-02-05 12:32 | Outpatient (REF) | payer OTHER, SELFPAY ==
[2022-02-05 13:34] LABS: Lithium 0.43 mmol/L (0.60-1.20)
[2022-02-05 14:08] LABS: Alanine Aminotransferase 84 U/L (0-40); Albumin Level 4.1 g/dL (3.5-5.0); Alkaline Phosphatase 42 U/L (39-117); Anion Gap 10 (12-20); Aspartate Amino Transferase 21 U/L (5-37); Bilirubin Total 0.7 mg/dL (0.0-1.0); Blood Urea Nitrogen 12 mg/dL (9-16); Calcium 9.9 mg/dL (8.4-10.2); Carbon Dioxide 31 mmol/L (22-29); Chloride 105 mmol/L (96-108); Estimated Glomerular Filt Rate 57; Free T4 (Free Thyroxine) 0.91 ng/dL (0.71-1.85); Glucose Fasting 123 mg/dL (60-99); Potassium 4.7 mmol/L (3.3-5.1); Sodium 141 mmol/L (135-145); Thyroid Stimulating Hormone 1.08 uIU/mL (0.32-4.0); Total Protein 6.6 g/dL (6.5-8.0)
== END 2022-02-05 12:33 | disposition home or self-care (01) ==
LOC: HO.LABR 12:32
PROVIDERS: PCP Nurse Practitioner Adult Health; Visit Provider Registered Nurse
DX: Z79.899 Other long term (current) drug therapy (principal)
CPT/HCPCS: 36415; 80053; 80178; 84439; 84443

== ENCOUNTER 2022-10-25 14:52 | Outpatient (REF) | payer OTHER, SELFPAY ==
[2022-10-25 16:51] LABS: Alanine Aminotransferase 25 U/L (0-40); Albumin Level 4.1 g/dL (3.5-5.0); Alkaline Phosphatase 37 U/L (39-117); Anion Gap 12 (12-20); Aspartate Amino Transferase 19 U/L (5-37); Bilirubin Total 0.6 mg/dL (0.0-1.0); Blood Urea Nitrogen 14 mg/dL (9-16); Calcium 9.4 mg/dL (8.4-10.2); Carbon Dioxide 24 mmol/L (22-29); Chloride 107 mmol/L (96-108); Estimated Glomerular Filt Rate > 60; Glucose Fasting 114 mg/dL (60-99); Potassium 4.1 mmol/L (3.3-5.1); Sodium 139 mmol/L (135-145); Total Protein 7.1 g/dL (6.5-8.0)
[2022-10-25 16:52] LABS: Lithium 0.35 mmol/L (0.60-1.20)
[2022-10-25 17:06] LABS: Free T4 (Free Thyroxine) 0.84 ng/dL (0.71-1.85); TSH reflex Free T4 1.32 uIU/mL (0.32-4.0)
== END 2022-10-25 14:53 | disposition home or self-care (01) ==
LOC: HO.LABR 14:52
PROVIDERS: Visit Provider Registered Nurse
DX: Z79.899 Other long term (current) drug therapy (principal)
CPT/HCPCS: 36415; 80053; 80178; 84439; 84443

== ENCOUNTER 2023-04-26 10:11 | Outpatient (REF) | payer OTHER, SELFPAY ==
[2023-04-26 12:02] LABS: Lithium 0.47 mmol/L (0.60-1.20)
[2023-04-26 12:23] LABS: Alanine Aminotransferase 28 U/L (0-40); Albumin Level 4.2 g/dL (3.5-5.0); Alkaline Phosphatase 26 U/L (39-117); Anion Gap 14 (12-20); Aspartate Amino Transferase 19 U/L (5-37); Bilirubin Total 0.8 mg/dL (0.0-1.0); Blood Urea Nitrogen 11 mg/dL (9-16); Calcium 9.4 mg/dL (8.4-10.2); Carbon Dioxide 23 mmol/L (22-29); Chloride 106 mmol/L (96-108); Estimated Glomerular Filt Rate 59; Glucose Fasting 128 mg/dL (60-99); Potassium 3.9 mmol/L (3.3-5.1); Sodium 139 mmol/L (135-145); Total Protein 7.2 g/dL (6.5-8.0)
[2023-04-26 13:23] LABS: TSH reflex Free T4 1.81 uIU/mL (0.32-4.0)
== END 2023-04-26 10:12 | disposition home or self-care (01) ==
LOC: HO.LAB 10:11
PROVIDERS: Visit Provider Registered Nurse
DX: F31.2 Bipolar disorder, current episode manic severe with psychotic features (principal); Z79.899 Other long term (current) drug therapy
CPT/HCPCS: 36415; 80053; 80178; 84443

== ENCOUNTER 2023-10-07 11:11 | Outpatient (REF) | payer OTHER, SELFPAY ==
[2023-10-07 20:44] LABS: Alanine Aminotransferase 26 U/L (0-40); Albumin Level 4.3 g/dL (3.5-5.0); Alkaline Phosphatase 35 U/L (39-117); Anion Gap 14 (12-20); Aspartate Amino Transferase 16 U/L (5-37); Bilirubin Total 0.6 mg/dL (0.0-1.0); Blood Urea Nitrogen 15 mg/dL (9-16); Calcium 9.8 mg/dL (8.4-10.2); Carbon Dioxide 27 mmol/L (22-29); Chloride 105 mmol/L (96-108); Estimated Glomerular Filt Rate > 60; Glucose Fasting 136 mg/dL (60-99); Potassium 4.5 mmol/L (3.3-5.1); Sodium 141 mmol/L (135-145); TSH reflex Free T4 0.68 uIU/mL (0.32-4.0); Thyroid Stimulating Hormone 0.68 uIU/mL (0.32-4.0); Total Protein 7.3 g/dL (6.5-8.0)
[2023-10-07 22:39] LABS: Lithium 0.55 mmol/L (0.60-1.20)
== END 2023-10-07 11:12 | disposition home or self-care (01) ==
LOC: HO.LAB 11:11
PROVIDERS: PCP Nurse Practitioner Adult Health; Visit Provider Registered Nurse
DX: F31.2 Bipolar disorder, current episode manic severe with psychotic features (principal); Z79.899 Other long term (current) drug therapy
CPT/HCPCS: 36415; 80053; 80178; 84443

== ENCOUNTER 2024-03-29 12:55 | Outpatient (REF) | payer OTHER, SELFPAY ==
[2024-03-29 13:58] LABS: Lithium 0.41 mmol/L (0.60-1.20)
[2024-03-29 14:12] LABS: Albumin Level 4.2 g/dL (3.5-5.0); Alkaline Phosphatase 42 U/L (39-117); Anion Gap 9 (12-20); Aspartate Amino Transferase 21 U/L (5-37); Bilirubin Total 0.6 mg/dL (0.0-1.0); Blood Urea Nitrogen 13 mg/dL (9-16); Calcium 9.7 mg/dL (8.4-10.2); Carbon Dioxide 29 mmol/L (22-29); Chloride 107 mmol/L (96-108); Estimated Glomerular Filt Rate > 60; Glucose Fasting 116 mg/dL (60-99); Potassium 4.1 mmol/L (3.3-5.1); Sodium 141 mmol/L (135-145); Total Protein 7.4 g/dL (6.5-8.0)
[2024-03-29 14:23] LABS: Alanine Aminotransferase 47 U/L (0-40)
[2024-03-29 14:28] LABS: Thyroid Stimulating Hormone 1.28 uIU/mL (0.32-4.0)
== END 2024-03-29 12:56 | disposition home or self-care (01) ==
LOC: HO.LAB 12:55
PROVIDERS: PCP Nurse Practitioner Adult Health; Visit Provider Registered Nurse
DX: Z79.899 Other long term (current) drug therapy (principal); F31.2 Bipolar disorder, current episode manic severe with psychotic features
CPT/HCPCS: 36415; 80053; 80178; 84443

== ENCOUNTER 2024-08-09 12:08 | Outpatient (REF) | payer OTHER, SELFPAY ==
--- OUTSIDE RECORDS SUMMARY | 2024-08-09 12:27 | XMS_ITS | Clinical Summary ---
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 Entrepreneurial Finance Professor Name Role Phone Unavailable Primary Care Provider Unavailabl e Social History Tobacco Use Types Packs/Day Years Used Date Smoking Tobacco: Never Assessed Sex and Gender Information Value Date Recorded Sex Assigned at Not on file Legal Sex Male 9:52 AM EDT Gender Identity Not on file Sexual Orientation Not on file Plan of Treatment Health Maintenance Due Date Last Done Comments Colorectal Cancer: COLONOSCO PY Screening every 10 yrs (or Modifier) 1963 Depression: Screening Annual ly using PHQ-2/9 in Adults 18 yrs or above (or HM Modifier)([facility]) 1981 Hepatitis C Virus Infection in Adolescents and Adults: Screening (or Modifier) ([facility]) 1981 SDIL Screening Reminder: Seema watts for all adults ([facility]) 1981 Tobacco Smoking Cessation: i n Adults excluding Women: Behavioral and Pharmacotherapy Interventions ([facility]) 1981 DTaP/Tdap/Td Vaccines ([facility]) (1 - Tdap) 1982 zzRETIRED Lipid Screening: E very 5 yrs for Men aged 35+ (or HM Modifier) ([facility]) 1999 Colorectal Cancer Screening 45 -75 Yrs (or HM Modifier ) 2008 Colorectal Cancer: FLEXIBLE SIGMOIDOSCOPY Screening every 5 yrs 2008 Colorectal Cancer: Fecal Imm unochemical Test (FIT) Annually [facility] 2008 Colorectal Cancer: High-sens itivity gFOBT Screening Annually [facility] 2008 Colorectal Cancer: Stool Col oguard Screening every 3 yrs 2008 Colorectal Cancer:CT Colonography Screening every 5 yr s 2008 Pneumococcal Vaccination Scr eening: Patients 50+ yrs of age ([facility]) (1 of 1 - PCV) 2013 Zoster/Shingles Vaccine Seri es Screening: Adults aged 18+ yrs (or HM Modifiers)([facility]) (1 of 2) 2013 COVID-19 Vaccine Screening: Initial Series and Booster Status ([facility]) ( - 2023- season) 2023 Flu Vaccination: Yearly for ages 18mos through 64 years (or Modifier)([facility]) 10/19/2024 RSV Vaccines (1 - 1-dose 75+ series) 2038 [employer] Not on file Insurance MEDICARE
[2024-08-09 13:19] LABS: Lithium 0.42 mmol/L (0.60-1.20)
[2024-08-09 13:47] LABS: Alanine Aminotransferase 37 U/L (0-40); Albumin Level 4.4 g/dL (3.5-5.0); Alkaline Phosphatase 36 U/L (39-117); Anion Gap 11 (12-20); Aspartate Amino Transferase 18 U/L (5-37); Bilirubin Total 0.6 mg/dL (0.0-1.0); Blood Urea Nitrogen 14 mg/dL (9-16); Calcium 9.7 mg/dL (8.4-10.2); Carbon Dioxide 27 mmol/L (22-29); Chloride 107 mmol/L (96-108); Estimated Glomerular Filt Rate > 60; Glucose Random 131 mg/dL (60-115); Potassium 3.9 mmol/L (3.3-5.1); Sodium 141 mmol/L (135-145); Total Protein 7.2 g/dL (6.5-8.0)
[2024-08-09 13:52] LABS: Thyroid Stimulating Hormone 0.99 uIU/mL (0.32-4.0)
== END 2024-08-09 12:09 | disposition home or self-care (01) ==
LOC: HO.LABR 12:08
PROVIDERS: PCP Nurse Practitioner Adult Health; Visit Provider Registered Nurse
DX: Z79.899 Other long term (current) drug therapy (principal)
CPT/HCPCS: 36415; 80053; 80178; 84443

== ENCOUNTER 2024-11-09 12:26 | Outpatient (REF) | payer OTHER, SELFPAY ==
--- OUTSIDE RECORDS SUMMARY | 2024-11-09 12:29 | XMS_ITS | Clinical Summary ---
Author Organization [facility] Address [address] [place] [phone] Phone Care Team Providers Care Nailer Machine Name Role Phone Ashanti Thomson NP Primary Care Provider Allergies Active Allergy Reactions Criticality Noted Date Comments Penicillins Rash Low 06/02/2020 Medications lithium carbonate 300 mg tablet Take 450 mg by mouth daily. 450mg once a day ER Active FLUoxetine (PROZAC) 10 MG capsule 02/03/2021 Active VRAYLAR 3 mg capsule daily. 03/31/2021 Active metFORMIN (GLUCOPHAGE) 500 MG tablet Take 500 mg by mouth daily. 07/17/2021 Active BANOPHEN 25 mg tablet Take by mouth nightly at bedtime as needed. 11/04/2022 Active Active Problems Problem Noted Date Diagnosed Date YESSENIA (obstructive sleep apnea) 01/11/2022 Hypersomnia 01/11/2022 CPAP (continuous positive airway pressure) kennedy nelson 01/11/2022 Family History Medical History Relation Comments Stroke Father Relation Status Comments Father Social History Tobacco Use Types Packs/Day Years Used Date Smoking Tobacco: Former Cigarettes Q uit: 2019 Smokeless Tobacco: Never Tobacco Cessation:Counseling Given: Not Answered Alcohol Use Standard Drinks/Week Comments Never 0 (1 standard drink = 0.6 oz pur e alcohol) Education Answer Date Recorded Are you interested in more education? Not on luzmaria e 07/16/2022 Are you concerned about learning? Not on file 07/16/2022 No 07/16/2022 No 07/16/2022 Digital Access Answer Date Recorded No 08/14/2022 No 08/14/2022 Reliable internet access at home? Not on file 08/14/2022 Device with a working camera? Not on file Sex and Gender Information Value Date Recorded Sex Assigned at Male 06/02/2020 11:15 AM EDT Legal Sex Male 11:01 AM EDT Gender Identity Male 06/02/2020 11:15 AM EDT Sexual Orientation Not on file Last Filed Vital Signs Vital Sign Reading Time Taken Comments Blood Pressure 122/84 06/18/2024 2:29 PM EDT Pulse 65 06/18/2024 2:29 PM EDT Temperature 35 C (95 F) 06/04/2020 1:29 AM EDT Respiratory Rate 16 06/04/2020 1:29 AM EDT Oxygen Saturation 98% 06/18/2024 2:29 PM EDT Inhaled Oxygen Concentration - - Weight 86.6 kg (191 lb) 06/18/2024 2:29 PM EDT Height 175.3 cm (5' 9.02 ) 06/18/2024 2:29 PM ED T Body Mass Index 28.19 06/18/2024 2:29 PM EDT Plan of Treatment Upcoming Encounters Date Type Department Care Team (Late st Contact Info) Description 06/24/2025 1:40 PM EDT Office Visit [facility] [address] [place] [address] [address] Floor, [address] [place] [id number] Corona Edwards MD, MS [address] [facility], [address] [place] [id number] [email or web address] Health Maintenance Due Date Last Done Comments LIPID PANEL 1963 DEPRESSION SCREENING 1975 SMOKING Hx and SMOKELESS TOB ACCO SCREENING 1976 HEPATITIS C SCREENING 1981 HIV ONE-TIME SCREENING (18-6 5 YEARS) 1981 SCREENING FOR DIABETES 1998 COLOGUARD 2008 COLONOSCOPY 2008 COLORECTAL CANCER SCREENING 2008 FIT TEST 2008 FOBT 2008 SIGMOIDOSCOPY 2008 VIRTUAL COLONOSCOPY 2008 ZOSTER VACCINES (1 of 2) 2013 TSH LEVEL 01/07/2020 01/06/2019 PNEUMOCOCCAL VACCINES (50+ y ears) (2 of 2 - PCV) 12/23/2020 12/24/2019 CREATININE LEVEL 06/02/2021 06/02/2020 LITHIUM LEVEL 06/02/2021 06/02/2020 COVID-19 VACCINE (2 - 2023-2 5 season) 2023 06/29/2020 Adult Td,Tdap Booster 12/23/2029 12/24/2019 RSV VACCINE (1 - 1-dose 75+ series) 2038 HEPATITIS A VACCINES Aged Out No long er eligible based on patient's age to complete this topic HIB VACCINES Aged Out No longer eligi ble based on patient's age to complete this topic MENINGOCOCCAL VACCINES (ACWY) Aged Out No longer eligible based on patient's age to complete this topic MENINGOCOCCAL VACCINES (B) Aged Out N o longer eligible based on patient's age to complete this topic Medical Devices Not on file Procedures Procedure Name Priority Date/Time Associated Diagnosis Comments LITHIUM LEVEL STAT 06/02/2020 12:26 PM EDT BASIC METABOLIC PANEL STAT 06/02/2020 12:26 PM EDT from Last 3 Months or Most Recently Relevant to Health Maintenance Results * [place] level (06/02/2020 12:26 PM EDT) LITHIUM 0.83 0.5 - 1.00 mmol/L [facility] Blood 06/02/2020 12:2 6 PM EDT 06/02/2020 12:41 PM EDT La Gayle MD LAB BLOOD ORDERABLES Final Result [facility] [address] [place] [address] * (ABNORMAL) Basic metabolic panel (06/02/2020 12:26 PM EDT) SODIUM 138 133 - 146 mmol/L [facility] CHLORIDE 101 96 - 108 mmol/L [facility] POTASSIUM 4.0 3.3 - 5.1 mmol/L [facility] CO2 27 21 - 35 mmol/L [facility] BUN 15 6 - 19 mg/dL [facility] CREATININE 1.00 0.5 - 1.5 mg/dL [facility] GLUCOSE 151(H) 70 - 99 mg/dL [facility] CALCIUM 9.6 8.4 - 10.3 mg/dL [facility] EGFR 83 >59 mL/min/1.7 3m2 [facility] Comment:Estimated glomerular filtration rate calculated using the CKD-EPI equation. ANION GAP 14 10 - 20 mmol/L [facility] Blood 06/02/2020 12:2 6 PM EDT 06/02/2020 12:41 PM EDT La Gayle MD LAB BLOOD ORDERABLES Final Result [facility] [address], [place] [id number] from Last 3 Months or Most Recently Relevant to Health Maintenance Insurance [facility] MEDICARE REPLACEMENT KENY HANSEN [id number] [facility] MEDICARE REPLACEMENT [facility] MEDICARE [facility]PLACEMENT [facility] MEDICARE REPLACEMENT [facility] MEDICARE REPLACEMENT CARE MEDICARE REPLACEMENT MEDICARE REPLACEMENT [facility] MEDICARE REPLACEMENT [facility] MEDICARE REPLACEMENT KENY HANSEN [id number] Care Teams Nailer Machine Relationship Specialty Start Date End Date Ashanti Thomson NP [address] [place] [id number] [email or web address] PCP - General 04/01/21 Additional Source Comments The information contained in this document represents components of the legal health record. It is not the complete legal health record.[facility]
--- OUTSIDE RECORDS SUMMARY | 2024-11-09 12:29 | XMS_ITS | Clinical Summary ---
Author Organization [facility] [employer] [facility][1] lin Address [address] [place] [address] Care Team Providers Care Fabric Inspector Name Role Phone Unavailable Primary Care Provider [...] Adults 18 yrs or above (or HM Modifier)([facility]) 1981 Hepatitis C Virus Infection in Adolescents and Adults: Screening (or Modifier) ([facility]) 1981 SDME Screening Reminder: Seema watts for all adults ([facility]) 1981 Tobacco Smoking Cessation: i n Adults excluding Women: Behavioral and Pharmacotherapy Interventions ([facility]) 1981 DTaP/Tdap/Td Vaccines ([facility]) (1 - Tdap) 1982 Colorectal Cancer Screening 45 -75 Yrs (or HM Modifier ) 2008 Colorectal Cancer: FLEXIBLE SIGMOIDOSCOPY Screening every 5 yrs 2008 Colorectal Cancer: Fecal Imm unochemical Test (FIT) Annually [facility] 2008 Colorectal Cancer: High-sens itivity gFOBT Screening Annually [facility] 2008 Colorectal Cancer: Stool Col oguard Screening every 3 yrs 2008 Colorectal Cancer:CT Colonography Screening every 5 yr s 2008 Pneumococcal Vaccination Scr eening: Patients 50+ yrs of age ([facility]) (1 of 1 - PCV) 2013 Zoster/Shingles Vaccine Seri es Screening: Adults aged 18+ yrs (or HM Modifiers)([facility]) (1 of 2) 2013 COVID-19 Vaccine Screening: Initial Series and Booster Status ([facility]) (2023- season) 2023 Flu Vaccination: Yearly for ages 18mos through 64 years (or Modifier)([facility] ) 10/19/2024 RSV Vaccines (1 - 1-dose 75+ series) 2038 Medical Devices Not on file Insurance MEDICARE
[2024-11-09 13:27] LABS: Lithium 0.44 mmol/L (0.60-1.20)
[2024-11-09 13:33] LABS: Alanine Aminotransferase 43 U/L (0-40); Albumin Level 4.3 g/dL (3.5-5.0); Alkaline Phosphatase 40 U/L (39-117); Anion Gap 11 (12-20); Aspartate Amino Transferase 22 U/L (5-37); Blood Urea Nitrogen 21 mg/dL (9-16); Calcium 9.3 mg/dL (8.4-10.2); Carbon Dioxide 24 mmol/L (22-29); Chloride 109 mmol/L (96-108); Estimated Glomerular Filt Rate > 60; Potassium 4.1 mmol/L (3.3-5.1); Sodium 140 mmol/L (135-145); Total Protein 7.2 g/dL (6.5-8.0)
[2024-11-09 13:49] LABS: Thyroid Stimulating Hormone 1.29 uIU/mL (0.32-4.0)
== END 2024-11-09 12:27 | disposition home or self-care (01) ==
LOC: HO.LABR 12:26
PROVIDERS: PCP Nurse Practitioner Adult Health; Visit Provider Registered Nurse
DX: Z51.81 Encounter for therapeutic drug level monitoring (principal); Z79.899 Other long term (current) drug therapy
CPT/HCPCS: 36415; 80053; 80178; 84443